=== PATIENT | male | born 1930 | race African-American/Black ===

== ENCOUNTER 2016-04-10 13:00 | Outpatient (CLI) ==
[2013-02-15 07:58] VITALS: BMI 33.0
== END 2016-04-10 13:01 | disposition home or self-care (01) ==
LOC: AMBL 13:00
PROVIDERS: ATTEND Emergency Medicine
DX: Z04.3 Encounter for examination and observation following other accident (principal); W07.XXXA Fall from chair, initial encounter; Y92.002 Bathroom of unspecified non-institutional (private) residence as the place of occurrence of the external cause

== ENCOUNTER 2016-11-15 16:07 | Outpatient (CLI) | payer OTHER ==
[2013-02-15 07:58] VITALS: BMI 33.0
[2016-11-15 16:13] LABS: BASOPHILS % (AUTO) 0.7 % (0.0-3.0); EOSINOPHILS # (AUTO) 0.2 K/ul (0.0-0.7); EOSINOPHILS % (AUTO) 5.3 % (0.0-7.0); HEMATOCRIT 32.7 % (42.0-52.0); HEMOGLOBIN 10.6 g/dl (14.0-18.0); IMMATURE GRANULOCYTE % (AUTO) 0.2 % (0.0-5.0); LYMPHOCYTES # (AUTO) 0.8 K/uL (0.60-3.4); LYMPHOCYTES % (AUTO) 18.1 (10.0-50.0); MEAN CORPUSCULAR HEMOGLOBIN 28.9 pg (27.0-31.0); MEAN CORPUSCULAR HGB CONC 32.4 (31.8-35.4); MEAN CORPUSCULAR VOLUME 89.1 fl (80.0-94.0); MONOCYTES # (AUTO) 0.7 K/uL (0.4-2.0); MONOCYTES % (AUTO) 14.9 (0-10); NEUTROPHILS # (AUTO) 2.7 K/ul (2.0-6.9); NEUTROPHILS % (AUTO) 60.8; PLATELET COUNT 170 10^3/uL (140-440); RED BLOOD COUNT 3.67 10^6/ul (4.70-6.10); WHITE BLOOD COUNT 4.37 K/ul (4.2-10.2)
[2016-11-15 16:49] LABS: ALBUMIN 3.5 g/dL (3.4-5.0); ALBUMIN/GLOBULIN RATIO 1.13; ANION GAP 14.2; BILIRUBIN,TOTAL 0.34 mg/dL (0.00-1.20); BUN/CREATININE RATIO 18.24; CALCIUM 9.6 mg/dL (8.2-10.2); CHOL/HDL RATIO 2.4 (4.5-6.4); CREATININE 1.37 mg/dL (0.60-1.10); POTASSIUM 5.2 mmol/L (3.5-5.1); TOTAL PROTEIN 6.6 g/dL (5.8-8.1)
== END 2016-11-15 16:08 | disposition home or self-care (01) ==
LOC: LAB 16:07
PROVIDERS: ATTEND Emergency Medicine
DX: D75.0 Familial erythrocytosis (principal); E78.5 Hyperlipidemia, unspecified
CPT/HCPCS: 36415; 80053; 80061; 84443; 85025

== ENCOUNTER 2016-12-08 16:45 | Outpatient (CLI) | payer OTHER ==
[2013-02-15 07:58] VITALS: BMI 33.0
[2016-12-08 17:26] LABS: ALBUMIN 3.6 g/dL (3.4-5.0); ALBUMIN/GLOBULIN RATIO 1.03; ANION GAP 11.1; BILIRUBIN,TOTAL 0.29 mg/dL (0.00-1.20); BUN/CREATININE RATIO 28.85; CALCIUM 9.8 mg/dL (8.2-10.2); CREATININE 1.49 mg/dL (0.60-1.10); POTASSIUM 4.1 mmol/L (3.5-5.1); TOTAL PROTEIN 7.1 g/dL (5.8-8.1)
== END 2016-12-08 16:46 | disposition home or self-care (01) ==
LOC: LAB 16:45
PROVIDERS: ATTEND Emergency Medicine
DX: E78.5 Hyperlipidemia, unspecified (principal); D75.0 Familial erythrocytosis
CPT/HCPCS: 36415; 80053

== ENCOUNTER → 2017-02-15 | Outpatient (CLI) | LOC: AMBL 08:38 | PROVIDERS: ATTEND Emergency Medicine | DX: Z04.3 Encounter for examination and observation following other accident (principal); G30.9 Alzheimer's disease, unspecified; F02.80 Dementia in other diseases classified elsewhere, unspecified severity, without behavioral disturbance, psychotic disturbance, mood disturbance, and anxiety; W18.11XA Fall from or off toilet without subsequent striking against object, initial encounter ==

== ENCOUNTER 2017-02-18 13:43 | Inpatient (IN) ==
[2017-02-18 15:31] VITALS: BMI 23.2
[2017-02-18] MEDS: NAMENDA PO SCH (20:57)
[2017-02-18] MEDS: LIPITOR PO SCH (20:58)
[2017-02-18] MEDS: SEROQUEL PO SCH (20:58)
[2017-02-18] MEDS: NEURONTIN PO SCH (20:58)
[2017-02-18] MEDS: FERROUS SULFATE PO SCH (20:59)
[2017-02-18] MEDS ORDERED: NON-FORMULARY MEDICATION (Ferrous Sulfate [Ferrous Sulfate] 325 MG) PO SCH (21:00)
[2017-02-19] MEDS: NAMENDA PO SCH (08:44)
[2017-02-19] MEDS: LEXAPRO PO SCH (08:44)
[2017-02-19] MEDS: COZAAR PO SCH (08:44)
[2017-02-19] MEDS: FERROUS SULFATE PO SCH ×3 (08:45→21:35)
[2017-02-19] MEDS: MULTIVITAMIN TABLET PO SCH (08:46)
[2017-02-19] MEDS: DITROPAN XL PO SCH (08:47)
[2017-02-19] MEDS ORDERED: FOLIC ACID PO SCH (09:00)
[2017-02-19] MEDS ORDERED: NON-FORMULARY MEDICATION (Escitalopram Oxalate [Escitalopram Oxalate] 20 MG) PO SCH (09:00)
[2017-02-19] MEDS ORDERED: MULTIVIT IRON MINER PO SCH (09:00)
[2017-02-19] MEDS ORDERED: [UNRECOGNIZED DRUG - OTHER] PO SCH (09:00)
[2017-02-19] MEDS ORDERED: DONEPEZIL HCL 23 MG PO SCH (09:00)
[2017-02-19] MEDS ORDERED: OXYBUTYNIN CHLORIDE 10 MG PO SCH (09:00)
[2017-02-19] MEDS ORDERED: ZEBETA PO SCH (09:00)
--- NOTE | 2017-02-19 11:04 | RS.PTINEVL ---
Subjective - Patient information Date of Evaluation: 02/19/17 Date of Arrival on Unit: 02/18/17 Admitted From:: Facility Transfer ([facility]) Usual Living Arrangement: With Spouse Living Arrangement Comments: Spouse cares for patient in the home. His is currently in the custodial. Home Environment: House, Stairs (few) (to enter home) Medical History: Hypertension, Dementia, Cancer (Prostate) Subjective Information/ Patient Comments:: Patient states he feels like he could go home today. Agrees that he would be safer if he stayed for a few days to get stronger. He reports he was able to ambulate independently at home prior to his hospitalization at [facility]. - Level of function Abilities prior to this admission: Patient states he was independent with all transfers and ambulation. Previously , when his was here for therapy, we understood that they had help in the home besides their daughters. No family is present for information today. Current Level of Function: Partially Dependent Current Equipment Used at Home: rolling walker Interventions - Objective Patient Orientation: Person, Place, Time, Situation Range of Motion - ROM Right Lower Extremity AROM: WFL's Left Lower Extremity AROM: WFL's Muscle Strength - Muscle Strength Comments:: Bilateral hip strength 4-/5, knees 4/5, ankle 4 /5. Sensation - Sensation Right Lower Extremity Sensation: Intact/Normal Left Lower Extremity Sensation: Intact/Normal Balance - Sitting Balance and Reactions Static Sitting Balance: Good Dynamic Sitting Balance: Good - Standing Balance and Reactions Static Standing Balance: Fair (+) Dynamic Standing Balance: Fair Functional Mobility - Bed Mobility Scooting: CGA, Min Assist, 1 person assist, Verbal Cues, Tactile Cues Supine to Sit: CGA, Min Assist, 1 person assist, Verbal Cues, Tactile Cues - Transfers Sit to Stand: Min Assist, 1 person assist, Verbal Cues, Tactile Cues Stand to Sit: Min Assist, 1 person assist, Verbal Cues, Tactile Cues Stand Pivot Transfers: Min Assist, 1 person assist, Verbal Cues, Tactile Cues - Safety Awareness Safety Awareness: Poor Ambulation - Ambulation Weight Bearing Status: FWB Assistive Device Used: Rolling Walker Distance: 40 feet Assistance needed with Ambulation: Min Assist, 1 person assist, Verbal Cues, Tactile Cues Gait Deviations: Narrow Based gait, Forward posture, Displaced COG (posteriorly displaced), Short stride, Lacks step continuity Ambulation Comments: Tinetti Assessment score today is 9/28=67% impairment and a high risk for falls. Factors Affecting Ambulation: Decreased Balance, Weakness, Decreased Safety Treatment time - Time with patient Total treatment time: 42 (mins) Assessment - Assessment Problem List:: Decreased level of function, Requires training/education, Decreased safety/Risk of falls, Weakness Rehab Potential: Good Further Therapy Indicated?: Yes Comments: Presents to be at a high risk for falls per Tinetti Assessment Short Term Goals GOAL #1: Supine to sit with CGA and VC's of one. Goal to be met by: 02/22/17 GOAL #2: Sit to stand with good use of UE's and CGA of one. Goal to be met by: 02/22/17 GOAL #3: Pt to amb. with RW 60 feet with CGA and good base of support. Goal to be met by: 02/23/17 Jail Goals GOAL #1: All bed mobility independent. Goal to be met by: 02/26/17 GOAL #2: Transfers with SBA and good safety. Goal to be met by: 02/26/17 GOAL #3: Amb. with RW household distances with SBA w/ good safety. Goal to be met by: 02/26/17 Plan Plan of Care: Therapeutic EX, Neuromuscular Re-Educ, Therapeutic Activity, Self- Care/Home Management Frequency of Treatment: 1-2 X day, as tolerated Duration of Treatment: 1 Week Anticipated Discharge Destination: Home Has the Physician been added for Co-signature?: Yes
[2017-02-19] MEDS ORDERED: NAPROSYN PO PRN (13:55)
[2017-02-19] MEDS ORDERED: MILK OF MAGNESIA PO PRN (13:57)
[2017-02-19] MEDS: APRESOLINE PO SCH ×2 (14:41→21:35)
[2017-02-19] MEDS: LIPITOR PO SCH (21:35)
[2017-02-19] MEDS: NEURONTIN PO SCH (21:35)
[2017-02-19] MEDS: OMNICEF PO SCH (21:35)
[2017-02-19] MEDS: LOPRESSOR PO SCH (21:36)
[2017-02-19] MEDS: SEROQUEL PO SCH (21:36)
[2017-02-19] MEDS ORDERED: ARICEPT PO STA (21:40)
[2017-02-19] MEDS: DONEPEZIL HCL 23 MG PO SCH (21:41)
[2017-02-20] MEDS: APRESOLINE PO SCH ×3 (04:56→20:15)
[2017-02-20] MEDS: DITROPAN XL PO SCH (08:36)
[2017-02-20] MEDS: LEXAPRO PO SCH (08:36)
[2017-02-20] MEDS: LOPRESSOR PO SCH ×2 (08:36→20:14)
[2017-02-20] MEDS: OMNICEF PO SCH ×2 (08:36→20:15)
[2017-02-20] MEDS: FERROUS SULFATE PO SCH ×3 (08:36→20:14)
[2017-02-20] MEDS: MULTIVITAMIN TABLET PO SCH (08:36)
[2017-02-20] MEDS: NAMENDA PO SCH ×2 (08:36→12:15)
[2017-02-20] MEDS: COZAAR PO SCH (08:36)
[2017-02-20] MEDS: SEROQUEL PO SCH (20:14)
[2017-02-20] MEDS: ARICEPT PO SCH (20:14)
[2017-02-20] MEDS: NEURONTIN PO SCH (20:15)
[2017-02-20] MEDS: LIPITOR PO SCH (20:15)
[2017-02-20] MEDS: DONEPEZIL HCL 23 MG PO SCH (20:16)
[2017-02-21] MEDS: APRESOLINE PO SCH ×3 (04:38→21:28)
[2017-02-21] MEDS: LEXAPRO PO SCH (08:46)
[2017-02-21] MEDS: LOPRESSOR PO SCH ×2 (08:46→21:28)
[2017-02-21] MEDS: OMNICEF PO SCH ×2 (08:46→21:28)
[2017-02-21] MEDS: MULTIVITAMIN TABLET PO SCH (08:46)
[2017-02-21] MEDS: NAMENDA PO SCH ×2 (08:46→12:30)
[2017-02-21] MEDS: FERROUS SULFATE PO SCH ×3 (08:46→21:28)
[2017-02-21] MEDS: DITROPAN XL PO SCH (08:46)
[2017-02-21] MEDS: COZAAR PO SCH (08:47)
[2017-02-21] MEDS: DEPAKOTE SPRINKLES PO SCH ×2 (11:12→21:28)
[2017-02-21] MEDS: LOVENOX SUBCUT SCH (11:12)
[2017-02-21] MEDS ORDERED: DIVALPROEX SODIUM 125 MG PO SCH (21:00)
[2017-02-21] MEDS: NEURONTIN PO SCH (21:28)
[2017-02-21] MEDS: LIPITOR PO SCH (21:29)
[2017-02-21] MEDS: SEROQUEL PO SCH (21:29)
[2017-02-21] MEDS: ARICEPT PO SCH (21:29)
[2017-02-22] MEDS: APRESOLINE PO SCH ×5 (05:04→20:47)
[2017-02-22] MEDS ORDERED: APRESOLINE PO SCH (09:00)
[2017-02-22] MEDS: OMNICEF PO SCH ×2 (09:30→20:53)
[2017-02-22] MEDS: NAMENDA PO SCH ×2 (09:30→12:52)
[2017-02-22] MEDS: LOVENOX SUBCUT SCH (09:30)
[2017-02-22] MEDS: COZAAR PO SCH (09:30)
[2017-02-22] MEDS: DITROPAN XL PO SCH (09:30)
[2017-02-22] MEDS: MULTIVITAMIN TABLET PO SCH (09:30)
[2017-02-22] MEDS: DEPAKOTE SPRINKLES PO SCH ×2 (09:30→20:49)
[2017-02-22] MEDS: FERROUS SULFATE PO SCH ×3 (09:31→20:50)
[2017-02-22] MEDS: LOPRESSOR PO SCH ×2 (09:31→20:52)
--- NOTE | 2017-02-22 12:51 | PN ---
DATE OF SERVICE: 02/20/17 SUBJECTIVE: The patient was admitted from the from the [facility] after being treated there for the gait problem with behavioral changes and UTI. The patient is now more awake and alert. Recognizes me instantly. Needing antibiotic Omnicef for the UTI. No leg edema. REVIEW OF SYSTEMS: CONSTITUTIONAL: No fever, no chills. HEENT: Normal. ENDOCRINE: No weight gain, no weight loss. CVS: No angina symptoms. No CHF symptoms. No palpitations. No atypical chest pain for CAD. No shortness of breath. No PND, no orthopnea. RESPIRATORY: No cough, no hemoptysis. GI: No nausea, no vomiting. No abdominal pain. : No hematuria. No polyuria. MUSCULOSKELETAL:. No joint swelling. PSYCHIATRIC: Not anxious. No depression. No suicidal thoughts. No homicidal thoughts. SKIN: Intact. No rash. PHYSICAL EXAMINATION: V/S: Blood pressure 160/65, respiratory rate 16, heart rate 55, temperature 97.2 and WBC 5.07, hgb 10.6, hct 32.8, plt count 180, sodium 141, potassium 4.1 , chloride 104, bicarb 30, BUN 38, creatinine 1.23. HEENT: Normocephalic, atraumatic. NECK: Supple. No JVD, no carotid bruit. No lymphadenopathy. LUNGS: Clear to auscultation. No rales or rhonchi. HEART: S1, S2 normal. No S3. No murmur, gallop or regurgitation. ABDOMEN: Soft, nontender. Bowel sounds active. No rigidity. No rebound or guarding. No CVA tenderness. EXTREMITIES: No clubbing, cyanosis or pedal edema. MUSCULOSKELETAL: No joint swelling. NEUROLOGIC: Awake, alert. No focal deficit. LYMPHATIC: No lymph nodes palpable. SKIN: Intact. ASSESSMENT: 1. UTI being treated with Omnicef 2. Weakness 3. Debility needing physical therapy 4. Recent change in mental status and behavioral changes with Alzheimer's Dementia with behavioral changes was in the [place]. 5. Hypertension 6. Chronic kidney disease 7. Anemia 8. Dyslipidemia PLAN: 1. Continue Omnicef, Aricept, Namenda 2. I&O's 3. Fall Precautions Will follow the patient in daily rounds. TIME SPENT: More than 35 minutes MTDD
[2017-02-22] MEDS: CALMOSEPTINE OINTMENT TP SCH ×2 (12:52→20:49)
[2017-02-22] MEDS: FLAGYL PO SCH ×2 (12:52→20:50)
[2017-02-22] MEDS: ARICEPT PO SCH (20:49)
[2017-02-22] MEDS: LEXAPRO PO SCH (20:51)
[2017-02-22] MEDS: NEURONTIN PO SCH (20:52)
[2017-02-22] MEDS: LIPITOR PO SCH (20:52)
[2017-02-22] MEDS: SEROQUEL PO SCH (20:53)
[2017-02-23] MEDS: FLAGYL PO SCH ×3 (05:41→20:57)
[2017-02-23] MEDS: FERROUS SULFATE PO SCH ×3 (08:41→20:58)
[2017-02-23] MEDS: LOPRESSOR PO SCH ×2 (08:41→21:01)
[2017-02-23] MEDS: DEPAKOTE SPRINKLES PO SCH ×2 (08:41→20:58)
[2017-02-23] MEDS: DITROPAN XL PO SCH (08:41)
[2017-02-23] MEDS: COZAAR PO SCH (08:41)
[2017-02-23] MEDS: NAMENDA PO SCH ×2 (08:42→14:21)
[2017-02-23] MEDS: MULTIVITAMIN TABLET PO SCH (08:42)
[2017-02-23] MEDS: LOVENOX SUBCUT SCH (08:42)
[2017-02-23] MEDS: APRESOLINE PO SCH ×4 (08:42→20:57)
[2017-02-23] MEDS: CALMOSEPTINE OINTMENT TP SCH ×2 (08:42→20:58)
[2017-02-23] MEDS: OMNICEF PO SCH ×2 (08:42→20:58)
--- NOTE | 2017-02-23 10:06 | HP ---
DATE OF SERVICE: 02/18/17 CHIEF COMPLAINT: Physical therapy and occupation therapy. HISTORY OF PRESENT ILLNESS: This is an 86 year old male who was recently seen in the [facility] for syncopal episode and found to have the urinary tract infection. He was admitted there for initial treatment of IV antibiotics. He was there for the syncopal episodes. MRI of the brain did not show any abnormalities, showed the atrophy. UTI was positive so that was treated with antibiotics. After the initial treatment the patient was still needing help for the physical therapy and occupational therapy so the patient being transferred to the [facility] for the transitional care unit. REVIEW OF SYSTEMS: CONSTITUTIONAL: No fever, no chills.Weakness and tiredness. Inability to walking. HEENT: Normal. ENDOCRINE: No weight gain; no weight loss. CVS: No chest pain. No PND, no orthopnea. No shortness of breath. No PND, no orthopnea. RESPIRATORY: No cough, no congestion. No hemoptysis. GI: No nausea, no vomiting. No abdominal pain. No melena. : No hematuria. No polyuria. More frequency of urination. MUSCULOSKELETAL: No joint swelling. Joint pains. Leg edema. PSYCHIATRIC: Not anxious. No depression. No suicidal thoughts. No homicidal thoughts. SKIN: Intact, no open lesions. PAST MEDICAL HISTORY: Alzheimer's Dementia with behavioral changes. Hypertension Hyperlipidemia Anemia History of prostate cancer PAST SURGICAL HISTORY: Prostate PERSONAL HISTORY: The patient is and lives by himself at this time. He lives at the correction. Family history is significant for high blood pressure. MEDICATIONS: Seroquel Centrum Zebeta Namenda Lexapro Ditropan Cozaar Ferrous Sulfate Neurontin Lipitor Aricept ALLERGIES: No known allergies PHYSICAL EXAMINATION: V/S: Blood pressure 142/64, respiratory rate 19, heart rate 68, temperature 98.1 with saturation 97. HEENT: Atraumatic, normocephalic. No scleral icterus. Pallor positive. Mucosa dry. NECK: Supple. No JVD, no bruit. No lymphadenopathy. No thyromegaly. HEART: S1, S2 normal. No murmur. No cyanosis or clubbing. No ascites. LUNGS: Bilateral entry is decreased and clear to auscultation. No rales or rhonchi. ABDOMEN: Soft, nontender. Bowel sounds are active. No CVA tenderness. No rigidity or guarding. EXTREMITIES: No cyanosis, clubbing, 1+ edema. MUSCULOSKELETAL: Normal joints, no swelling. NEUROLOGIC: The patient is awake and alert. SKIN: Intact; no open lesions. LYMPHATIC: No lymph nodes palpable. LABS: Sodium 141, potassium 4.1, chloride 104, bicarb 30, BUN 38, creatinine 1.23, WBC 5.07, hgb 10.6, hct 32.8, plt count 180. ASSESSMENT: 1. UTI 2. Debility and weakness 3. Alzheimer dementia with behavioral changes 4. Hypertension 5. Osteoarthritis 6. Dependant edema PLAN: 1. Admit patient to the TCU care 2. CBC and CMP every other day 3. PT/OT please evaluated and treat 4. Diet cardiac and healthy 5. Continue Omnicef 6. Lipitor 5. Depakote 6. Aricept 7. Lovenox for the DVT prophylaxis 8. Lexapro 9. Ferrous sulfate 10.Neurontin 11.Hydralazine 10mg PO Q 8 hours 12.Losartan 13.Magnesium 14.Namenda 15.Metoprolol 16.Naproxen TIME SPENT: MORE THAN 75 minutes MTDD
--- NOTE | 2017-02-23 10:11 | PN ---
DATE OF SERVICE: 02/21/17 SUBJECTIVE: The patient was admitted with the weakness and tiredness and needing the physical therapy. Physical therapy people are going to come and see the patient today. Needing some help for the ambulation. REVIEW OF SYSTEMS: CONSTITUTIONAL: No fever, no chills. HEENT: Normal. ENDOCRINE: No weight gain, no weight loss. CVS: No angina symptoms. No CHF symptoms. No palpitations. No atypical chest pain for CAD. No shortness of breath. No PND, no orthopnea. RESPIRATORY: No cough, no hemoptysis. GI: No nausea, no vomiting. No abdominal pain. : No hematuria. No polyuria. MUSCULOSKELETAL:. No joint swelling. PSYCHIATRIC: Not anxious. No depression. No suicidal thoughts. No homicidal thoughts. SKIN: Intact. No rash. PHYSICAL EXAMINATION: V/S: Blood pressure 160/78, respiratory rate 16, heart rate 59, temperature 97.5 with saturation 97. HEENT: Normocephalic, atraumatic. Mucosa dry. Pallor positive. No icterus. NECK: Supple. No JVD, no carotid bruit. No lymphadenopathy. LUNGS: Bilateral entry is decreased and clear to auscultation. No rales or rhonchi. HEART: S1, S2 normal. No S3. No murmur, gallop or regurgitation. ABDOMEN: Soft, nontender. Bowel sounds active. No rigidity. No rebound or guarding. No CVA tenderness. EXTREMITIES: No clubbing, cyanosis or pedal edema. MUSCULOSKELETAL: No joint swelling. NEUROLOGIC: Awake, alert, oriented times three. No focal deficit. LYMPHATIC: No lymph nodes palpable. SKIN: Intact. LABS: WBC 5.07, hgb 10.6, hct 32.8, plt count 180, sodium 141, potassium 4.1, chloride 104, bicarb 30, BUN 38, creatinine 1.23, glucose 89. ASSESSMENT: 1. UTI 2. Weakness and tiredness needing some physical therapy 3. Hypertension 4. Alzheimer's Dementia with behavioral changes 5. Dyslipidemia 6. Osteoarthritis 7. DJD spine PLAN: 1. Continue physical therapy and occupational therapy 2. Continue Omnicef 3. Keep the legs elevated when resting. TIME SPENT: More than 35 minutes MTDD
--- NOTE | 2017-02-23 10:15 | CT ---
EXAM: CT Abdomen without contrast. CT Pelvis without contrast. HISTORY: Abdominal discomfort. Diarrhea. COMPARISON: None available. TECHNIQUE: Multiple axial images of the abdomen and pelvis were obtained without intravenous contras t. Images were reformatted in the coronal plane. FINDINGS: Please note that evaluation of the abdominal and pelvic structures is limited due to lack of intravenous contrast. The lung bases are clear. Bilateral pars defects seen at L5 with grade 1 anterolisthesis of L5-1, S1 by approximately 0.7 cm. There is sclerosis within the T11 vertebral body best seen on sagittal byron ge 66 and coronal image 57. The liver, gallbladder, pancreas, spleen, and adrenal glands demonstrate normal contour. Low density right renal lesions measure up to 3.1 x 2 cm on axial image 24 and 2.8 x 1.8 cm on axial image 27. There is no right hydronephrosis. Left nephrolithiasis noted measuring up to 0.4 cm. There is moder ate left hydronephrosis, although no obstructing ureteral calculi are seen. There are numerous food bolus present in the pelvis which somewhat limit evaluation. The urinary bladder is distended withou t localized abnormality. There is moderate distension of the stomach with debris. There is mild fluid distension of multiple small bowel loops without transition point. Colon is normal in caliber. The appendix is normal. At herosclerotic calcifications present. No free fluid or free air identified. Probable subcutaneous i njection site in the left anterior abdomen on axial image 45. IMPRESSION: 1. Nonspecific gastric and small bowel distension could represent enteritis. 2. Moderate left hydronephrosis possibly due to distended urinary bladder. There is left nephrolith iasis although no obstructing left ureteral calculi are identified. 3. Indeterminate low-density right renal lesions, likely cysts. Follow-up ultrasound recommended. 4. Sclerosis within the T11 vertebral body. Correlation for any primary neoplasm recommended as a m etastatic focus should be excluded.
--- NOTE | 2017-02-23 11:28 | PN ---
DATE OF SERVICE: 02/22/17 SUBJECTIVE: The patient was admitted with the weakness, tiredness and UTI getting the physical therapy. REVIEW OF SYSTEMS: CONSTITUTIONAL: No fever, no chills. HEENT: Normal. ENDOCRINE: No weight gain, no weight loss. CVS: No angina symptoms. No CHF symptoms. No palpitations. No atypical chest pain for CAD. No shortness of breath. No PND, no orthopnea. RESPIRATORY: No cough, no hemoptysis. GI: No nausea, no vomiting. No abdominal pain. : No hematuria. No polyuria. MUSCULOSKELETAL:. No joint swelling. PSYCHIATRIC: Not anxious. No depression. No suicidal thoughts. No homicidal thoughts. SKIN: Intact. No rash. PHYSICAL EXAMINATION: V/S: blood pressure 147/68, respiratory rate 18, heart rate 59, temperature 98.4. HEENT: Normocephalic, atraumatic. Mucosa dry. NECK: Supple. No JVD, no carotid bruit. No lymphadenopathy LUNGS: Bilateral entry is decreased. Clear to auscultation. No rales or rhonchi. HEART: S1, S2 normal. No S3. No murmur, gallop or regurgitation. ABDOMEN: Soft, nontender. Bowel sounds active. No rigidity. No rebound or guarding. No CVA tenderness. EXTREMITIES: No clubbing, cyanosis or pedal edema. MUSCULOSKELETAL: No joint swelling. NEUROLOGIC: Awake, alert, oriented times three. No focal deficit. LYMPHATIC: No lymph nodes palpable. SKIN: Intact. LABS: WBC 5.96, hgb 10.7, hct 34.8, plt count 198, sodium 143, potassium 4.7, chloride 107, bicarb 12, BUN 32, creatinine 1.36 ASSESSMENT: 1. UTI 2. Debility and weakness 3. Alzheimer's Dementia with behavioral changes 4. Chronic kidney disease 5. Hypertension 6. Osteoarthritis PLAN: 1. Continue the Omnicef 2. Increase the Hydralazine to 25mg Q 8 hours 3. PT/OT continue physical therapy and exercise 4. Fall precaution 5. Decubitus ulcer precautions TIME SPENT: More than 35 minutes MTDD
--- NOTE | 2017-02-23 14:23 | PN ---
DATE OF SERVICE: 02/19/17 SUBJECTIVE: The patient came yesterday from [facility] after the initial treatment for change in mental status, behavioral problems with Alzheimer's dementia and had been treated for UTI also with Omnicef. Here, he has been doing fine in the chair, able to walk some by himself. He is able to get out of chair and sit on the bed with some help otherwise no acute complaints. REVIEW OF SYSTEMS: CONSTITUTIONAL: No fever, no chills. HEENT: Normal. ENDOCRINE: No weight gain, no weight loss. CVS: No angina symptoms. No CHF symptoms. No palpitations. No atypical chest pain for CAD. No shortness of breath. No PND, no orthopnea. RESPIRATORY: No cough, no hemoptysis. GI: No nausea, no vomiting. No abdominal pain. : No hematuria. No polyuria. MUSCULOSKELETAL: No joint swelling. PSYCHIATRIC: Not anxious. No depression. No suicidal thoughts. No homicidal thoughts. SKIN: Intact. No rash. PHYSICAL EXAMINATION: V/S: BP 161/74, respiratory rate 20, heart rate 59, temperature 98.4. Saturation is 98. HEENT: Normocephalic, atraumatic. Mucosa dry. Pallor positive. No icterus. NECK: Supple. No JVD, no carotid bruit. No lymphadenopathy. LUNGS: Decreased entry. Clear to auscultation. No rales or rhonchi. HEART: S1, S2 normal. No S3. No murmur, gallop or regurgitation. ABDOMEN: Soft, nontender. Bowel sounds active. No rigidity. No rebound or guarding. No CVA tenderness. EXTREMITIES: 1+ edema. No clubbing or cyanosis. MUSCULOSKELETAL: No joint swelling. NEUROLOGIC: Normal. LYMPHATIC: No lymph nodes palpable. SKIN: Intact. LABS: White count 5.07, hemoglobin 10.6, hematocrit 32.8, platelet count 180. Sodium 141, potassium 4.1, chloride 104, bicarb 30, BUN 38, creatinine 1.23. ASSESSMENT: 1. STATUS POST AGITATION AND CONFUSION 2. ALZHEIMER'S DEMENTIA WITH BEHAVIORAL CHANGES 3. HYPERTENSION 4. DYSLIPIDEMIA 5. OSTEOARTHRITIS 6. DJD SPINE 7. CHRONIC KIDNEY DISEASE 8. ANEMIA 9. UTI PLAN: 1. Continue antibiotic Omnicef 2. Namenda as per the family's request, change timing of the dosage 3. Will follow with the patient in daily rounds TIME SPENT: More than 35 minutes MTDD
--- NOTE | 2017-02-23 15:54 | PN ---
DATE OF SERVICE: 02/23/17 SUBJECTIVE: The patient was admitted from the [facility] for the physical therapy and occupational therapy. The patient has been up and about walking. The patient's daughter is there, had a lot of questions and all have been answered. REVIEW OF SYSTEMS: CONSTITUTIONAL: No fever, no chills. HEENT: Normal. ENDOCRINE: No weight gain, no weight loss. CVS: No angina symptoms. No CHF symptoms. No palpitations. No atypical chest pain for CAD. No shortness of breath. No PND, no orthopnea. RESPIRATORY: No cough, no hemoptysis. GI: No nausea, no vomiting. No abdominal pain. : No hematuria. No polyuria. MUSCULOSKELETAL:. No joint swelling. PSYCHIATRIC: Not anxious. No depression. No suicidal thoughts. No homicidal thoughts. SKIN: Intact. No rash. PHYSICAL EXAMINATION: V/S: Blood pressure 154/78, respiratory rate 18, heart rate 62, temperature 97.6 with saturation 97 on the room air. HEENT: Normocephalic, atraumatic. Mucosa dry. Pallor positive. No icterus. NECK: Supple. No JVD, no carotid bruit. No lymphadenopathy. LUNGS: Bilateral entry is decreased and clear to auscultation. No rales or rhonchi. HEART: S1, S2 normal. No S3. No murmur, gallop or regurgitation. ABDOMEN: Soft, nontender. Bowel sounds active. No rigidity. No rebound or guarding. No CVA tenderness. EXTREMITIES: No clubbing, cyanosis. 1+ edema. MUSCULOSKELETAL: No joint swelling. NEUROLOGIC: Awake, alert, oriented times three. No focal deficit. LYMPHATIC: No lymph nodes palpable. SKIN: Intact. LABS: WBC 5.96, hgb 10.7, hct 34.8, plt count 198, sodium 142, potassium 4.7, chloride 107, bicarb 32, BUN 32, creatinine 1.36 ASSESSMENT: 1. UTI 2. Weakness and needing physical therapy 3. Alzheimer's Dementia 4. Hypertension 5. Anemia 6. Dependant edema PLAN: 1. Continue the Omnicef 2. PT/OT continue treating 3. Lovenox for the DVT prophylaxis 4. Ampicillin 25mg Q 8 hour 5. Blood pressure been maintained TIME SPENT: More than 35 minutes. Care and plan been discussed with the patient' s daughter who was present at the bedside. [facility]
[2017-02-23] MEDS: ARICEPT PO SCH (20:57)
[2017-02-23] MEDS: SEROQUEL PO SCH (20:57)
[2017-02-23] MEDS: NEURONTIN PO SCH (20:58)
[2017-02-23] MEDS: LIPITOR PO SCH (20:58)
[2017-02-23] MEDS: LEXAPRO PO SCH (21:00)
[2017-02-24] MEDS: FLAGYL PO SCH ×3 (05:56→20:35)
[2017-02-24] MEDS: LOVENOX SUBCUT SCH (08:46)
[2017-02-24] MEDS: NAMENDA PO SCH ×2 (08:47→13:10)
[2017-02-24] MEDS: APRESOLINE PO SCH ×4 (08:47→20:35)
[2017-02-24] MEDS: LOPRESSOR PO SCH ×2 (08:47→20:36)
[2017-02-24] MEDS: COZAAR PO SCH (08:47)
[2017-02-24] MEDS: DEPAKOTE SPRINKLES PO SCH ×2 (08:47→20:36)
[2017-02-24] MEDS: OMNICEF PO SCH ×2 (08:47→20:36)
[2017-02-24] MEDS: MULTIVITAMIN TABLET PO SCH (08:47)
[2017-02-24] MEDS: CALMOSEPTINE OINTMENT TP SCH ×2 (08:47→20:37)
[2017-02-24] MEDS: FERROUS SULFATE PO SCH ×3 (08:47→20:36)
[2017-02-24] MEDS: DITROPAN XL PO SCH (08:47)
--- NOTE | 2017-02-24 11:36 | CT ---
EXAM: CT chest without contrast. HISTORY: Sclerosis within the T11 vertebral body. Evaluate for neoplasm. Cough. COMPARISON: Abdominal CT 1 day prior. TECHNIQUE: Multiple axial images of the chest were obtained without intravenous contrast. Images we re reformatted in the sagittal and coronal planes. FINDINGS: Evaluation for lymphadenopathy is limited by lack of intravenous contrast. Heart size is at the upper limits normal. No pericardial effusion identified. Atherosclerotic calcifications pres ent. Bilateral gynecomastia noted. A 0.4 cm right upper lobe nodule on axial image 18 is present. Subtle subpleural nodularity in the a nterior right upper lobe is most notable on axial images 28 and 29. No consolidation, pleural effusio n or pneumothorax identified. There is mild gaseous distension of the esophagus. Moderate left hydronephrosis again noted. Sclerosis of the T11 vertebral body again noted. No other sclerotic lesions are seen within the thor ax. Old right posterior eighth rib fracture noted. IMPRESSION: 1. Redemonstration of sclerosis in the T11 vertebral body. No other sclerotic lesions are seen with in the thorax. MRI may be helpful for further characterization. 2. Right upper lobe micronodules require follow-up based on the etiology #1 above. 3. Nonspecific gaseous distension of the esophagus could be due to reflux.
--- NOTE | 2017-02-24 11:45 | CT ---
EXAM: CT thoracic spine without contrast. HISTORY: T11 abnormality, possible neoplasm COMPARISON: None TECHNIQUE: CT thoracic spine performed without intravenous contrast. Coronal and sagittal reformatt ed images obtained. FINDINGS: Vertebral bodies normal height. No fracture. No subluxation. Moderate multilevel chroni c discogenic degenerative disease with intervertebral space narrowing and marginal osteophyte formati on. Sclerosis of the T11 vertebral body. Central canal grossly patent. Please see separate report CT chest regarding findings in the chest. IMPRESSION: 1. Redemonstration of sclerosis of the T11 vertebral body. Correlation for primary neoplasm recommen d the as the metastatic etiology is a consideration and should be excluded. MRI with contrast may be beneficial for characterization. No additional sclerotic lesions seen in the thoracic spine. 2. Chronic discogenic degenerative disease.
[2017-02-24] MEDS: LIPITOR PO SCH (20:35)
[2017-02-24] MEDS: ARICEPT PO SCH (20:35)
[2017-02-24] MEDS: LEXAPRO PO SCH (20:36)
[2017-02-24] MEDS: SEROQUEL PO SCH (20:36)
[2017-02-24] MEDS: NEURONTIN PO SCH (20:36)
[2017-02-25] MEDS: FLAGYL PO SCH ×3 (04:28→20:00)
[2017-02-25] MEDS: DITROPAN XL PO SCH (08:28)
[2017-02-25] MEDS: NAMENDA PO SCH ×2 (08:28→13:47)
[2017-02-25] MEDS: OMNICEF PO SCH ×2 (08:28→20:00)
[2017-02-25] MEDS: DEPAKOTE SPRINKLES PO SCH ×2 (08:28→20:00)
[2017-02-25] MEDS: MULTIVITAMIN TABLET PO SCH (08:28)
[2017-02-25] MEDS: APRESOLINE PO SCH ×4 (08:29→20:01)
[2017-02-25] MEDS: LOPRESSOR PO SCH ×2 (08:29→20:00)
[2017-02-25] MEDS: LOVENOX SUBCUT SCH (08:30)
[2017-02-25] MEDS: FERROUS SULFATE PO SCH ×3 (08:30→20:01)
[2017-02-25] MEDS: COZAAR PO SCH (08:30)
[2017-02-25] MEDS: CALMOSEPTINE OINTMENT TP SCH (08:33)
[2017-02-25] MEDS: NEURONTIN PO SCH (19:59)
[2017-02-25] MEDS: SEROQUEL PO SCH (20:00)
[2017-02-25] MEDS: LIPITOR PO SCH (20:00)
[2017-02-25] MEDS: LEXAPRO PO SCH (20:00)
[2017-02-25] MEDS: ARICEPT PO SCH (20:01)
[2017-02-26] MEDS: CALMOSEPTINE OINTMENT TP SCH ×3 (02:27→20:09)
[2017-02-26] MEDS: FLAGYL PO SCH ×3 (06:20→20:06)
[2017-02-26] MEDS: OMNICEF PO SCH ×2 (08:40→20:07)
[2017-02-26] MEDS: COZAAR PO SCH (08:41)
[2017-02-26] MEDS: FERROUS SULFATE PO SCH ×3 (08:41→20:06)
[2017-02-26] MEDS: MULTIVITAMIN TABLET PO SCH (08:41)
[2017-02-26] MEDS: APRESOLINE PO SCH ×4 (08:41→20:06)
[2017-02-26] MEDS: DITROPAN XL PO SCH (08:41)
[2017-02-26] MEDS: LOPRESSOR PO SCH ×2 (08:42→20:07)
[2017-02-26] MEDS: DEPAKOTE SPRINKLES PO SCH ×2 (08:42→20:06)
[2017-02-26] MEDS: NAMENDA PO SCH ×2 (08:42→12:40)
[2017-02-26] MEDS: LOVENOX SUBCUT SCH (08:43)
[2017-02-26] MEDS: ARICEPT PO SCH (20:06)
[2017-02-26] MEDS: LIPITOR PO SCH (20:07)
[2017-02-26] MEDS: NEURONTIN PO SCH (20:07)
[2017-02-26] MEDS: SEROQUEL PO SCH (20:07)
[2017-02-26] MEDS: LEXAPRO PO SCH (20:07)
[2017-02-27] MEDS: FLAGYL PO SCH ×3 (04:55→20:27)
[2017-02-27] MEDS: CALMOSEPTINE OINTMENT TP SCH ×2 (08:48→20:26)
[2017-02-27] MEDS: LOVENOX SUBCUT SCH (08:49)
[2017-02-27] MEDS: DITROPAN XL PO SCH (08:49)
[2017-02-27] MEDS: APRESOLINE PO SCH ×4 (08:49→20:28)
[2017-02-27] MEDS: OMNICEF PO SCH ×2 (08:50→20:27)
[2017-02-27] MEDS: FERROUS SULFATE PO SCH ×3 (08:50→20:28)
[2017-02-27] MEDS: MULTIVITAMIN TABLET PO SCH (08:50)
[2017-02-27] MEDS: LOPRESSOR PO SCH ×2 (08:50→20:27)
[2017-02-27] MEDS: COZAAR PO SCH (08:50)
[2017-02-27] MEDS: DEPAKOTE SPRINKLES PO SCH ×2 (08:50→20:28)
[2017-02-27] MEDS: NAMENDA PO SCH ×2 (08:50→12:42)
[2017-02-27] MEDS: NEURONTIN PO SCH (20:27)
[2017-02-27] MEDS: ARICEPT PO SCH (20:27)
[2017-02-27] MEDS: SEROQUEL PO SCH (20:27)
[2017-02-27] MEDS: LEXAPRO PO SCH (20:28)
[2017-02-27] MEDS: LIPITOR PO SCH (20:28)
[2017-02-28] MEDS: FLAGYL PO SCH ×3 (05:11→20:00)
[2017-02-28] MEDS: LOVENOX SUBCUT SCH (08:48)
[2017-02-28] MEDS: OMNICEF PO SCH ×2 (08:49→20:00)
[2017-02-28] MEDS: DEPAKOTE SPRINKLES PO SCH ×2 (08:49→20:30)
[2017-02-28] MEDS: APRESOLINE PO SCH ×4 (08:49→19:59)
[2017-02-28] MEDS: DITROPAN XL PO SCH (08:49)
[2017-02-28] MEDS: COZAAR PO SCH (08:49)
[2017-02-28] MEDS: NAMENDA PO SCH ×2 (08:50→12:46)
[2017-02-28] MEDS: MULTIVITAMIN TABLET PO SCH (08:50)
[2017-02-28] MEDS: FERROUS SULFATE PO SCH ×3 (08:50→20:00)
[2017-02-28] MEDS: LOPRESSOR PO SCH ×2 (08:50→20:00)
[2017-02-28] MEDS: CALMOSEPTINE OINTMENT TP SCH ×2 (08:51→20:01)
--- NOTE | 2017-02-28 15:23 | PN ---
DATE OF SERVICE: 02/24/17 SUBJECTIVE: The patient was admitted with UTI, weakness and tiredness. The patient can walk good, needs only minimal help otherwise no problem walking. Antibiotic Omnicef has been given for UTI otherwise no fever, no chills. No PND or orthopnea. REVIEW OF SYSTEMS: CONSTITUTIONAL: Weakness, tiredness. No fever, no chills. HEENT: Normal. ENDOCRINE: No weight gain, no weight loss. CVS: No angina symptoms. No CHF symptoms. No palpitations. No atypical chest pain for CAD. No shortness of breath. No PND, no orthopnea. RESPIRATORY: No cough, no hemoptysis. GI: No nausea, no vomiting. No abdominal pain. : No hematuria. No polyuria. MUSCULOSKELETAL:. No joint swelling. PSYCHIATRIC: Not anxious. No depression. No suicidal thoughts. No homicidal thoughts. SKIN: Intact. No rash. PHYSICAL EXAMINATION: V/S: BP 146/76, respiratory rate 16, heart rate 76, temperature 97.3, saturation 98. HEENT: Normocephalic, atraumatic. Mucosa dry. Pallor positive. NECK: Supple. No JVD, no carotid bruit. No lymphadenopathy. LUNGS: Decreased air entry, clear to auscultation. No rales or rhonchi. HEART: S1, S2 normal. No S3. No murmur, gallop or regurgitation. ABDOMEN: Soft, nontender. Bowel sounds active. No rigidity. No rebound or guarding. No CVA tenderness. EXTREMITIES: No clubbing, cyanosis or pedal edema. MUSCULOSKELETAL: No joint swelling. NEUROLOGIC: Awake, alert, oriented times three. No focal deficit. LYMPHATIC: No lymph nodes palpable. SKIN: Intact. LABS: White count 5.96, hemoglobin 10.7, hematocrit 34.8, platelet count 198. Sodium 143, potassium 4.7, chloride 107, bicarb 32, BUN 32, creatinine 1.36. ASSESSMENT: 1. UTI 2. WEAKNESS AND DEBILITY 3. ACUTE ON CHRONIC RENAL FAILURE 4. OSTEOARTHRITIS 5. HISTORY OF PROSTATE CANCER PLAN: 1. CT of thoracic spine 2. CT chest 3. Physical and occupational care continue care 4. Will follow with the patient in daily rounds TIME SPENT: More than 35 minutes MTDD
--- NOTE | 2017-02-28 15:35 | PN ---
DATE OF SERVICE: 02/26/17 SUBJECTIVE: The patient was admitted with weakness and UTI. The patient had been walking better. Complains of mid thoracic spine pain. Thoracic spine CT scan shows there is a sclerosis of T11 vertebra, primary neoplasm correlation. The patient does not have prostate tumor. He has been seen by a urologist in the past for prostate. PSA is highly elevated. In view of this, I suspect prostate cancer on the patient which was discussed with the patient's daughter, Aleisha. REVIEW OF SYSTEMS: CONSTITUTIONAL: No fever, no chills. HEENT: Normal. ENDOCRINE: No weight gain, no weight loss. CVS: No angina symptoms. No CHF symptoms. No palpitations. No atypical chest pain for CAD. No shortness of breath. No PND, no orthopnea. RESPIRATORY: No cough, no hemoptysis. GI: No nausea, no vomiting. No abdominal pain. : No hematuria. No polyuria. MUSCULOSKELETAL:. No joint swelling. PSYCHIATRIC: Not anxious. No depression. No suicidal thoughts. No homicidal thoughts. SKIN: Intact. No rash. PHYSICAL EXAMINATION: V/S: BP 177/83, respiratory rate 18, heart rate 64, temperature 97.1, saturation 99 on room air. HEENT: Normocephalic, atraumatic. Mucosa dry. pallor positive. No icterus. NECK: Supple. No JVD, no carotid bruit. No lymphadenopathy. LUNGS: Decreased air entry, clear to auscultation. No rales or rhonchi. Mid thoracic pain, tenderness present. No rash. HEART: S1, S2 normal. No S3. No murmur, gallop or regurgitation. ABDOMEN: Soft, nontender. Bowel sounds active. No rigidity. No rebound or guarding. No CVA tenderness. EXTREMITIES: No clubbing, cyanosis or pedal edema. MUSCULOSKELETAL: No joint swelling. NEUROLOGIC: Awake, alert, oriented times three. No focal deficit. LYMPHATIC: No lymph nodes palpable. SKIN: Intact. LABS: Sodium 142, potassium 4.4, chloride 104, bicarb 29, BUN 38, creatinine 1.52. White count 5.81, hemoglobin 11.1, hematocrit 35.0, platelet 217. ASSESSMENT: 1. 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 Questionable prostate cancer 3. UTI 4. Anemia 5. Chronic kidney disease 6. Osteoarthritis 7. Alzheimer's dementia with behavioral changes PLAN: 1. Discussed risks, benefits and complications of the T11 vertebral lesion. The patient's daughter is thinking of course as the patient's age is 86 and what she wants to do. She is the power of state attorney. TIME SPENT: More than 35 minutes MTDD
[2017-02-28] MEDS: SEROQUEL PO SCH (19:59)
[2017-02-28] MEDS: LEXAPRO PO SCH (19:59)
[2017-02-28] MEDS: NEURONTIN PO SCH (20:00)
[2017-02-28] MEDS: LIPITOR PO SCH (20:00)
[2017-02-28] MEDS: ARICEPT PO SCH (20:00)
[2017-03-01] MEDS: FLAGYL PO SCH ×2 (04:36→12:50)
[2017-03-01 06:10] VITALS: BP 159/79; TEMP 98.7
[2017-03-01] MEDS: LOVENOX SUBCUT SCH (11:46)
[2017-03-01] MEDS: LOPRESSOR PO SCH (11:47)
[2017-03-01] MEDS: APRESOLINE PO SCH ×2 (11:47→12:44)
[2017-03-01] MEDS: COZAAR PO SCH (11:47)
[2017-03-01] MEDS: DITROPAN XL PO SCH (11:49)
[2017-03-01] MEDS: DEPAKOTE SPRINKLES PO SCH (11:49)
[2017-03-01] MEDS: FERROUS SULFATE PO SCH ×2 (11:50→15:06)
[2017-03-01] MEDS: MULTIVITAMIN TABLET PO SCH (11:50)
[2017-03-01] MEDS: NAMENDA PO SCH ×2 (11:50)
[2017-03-01] MEDS: CALMOSEPTINE OINTMENT TP SCH (11:50)
[2017-03-01] MEDS: OMNICEF PO SCH (11:50)
--- NOTE | 2017-03-01 14:51 | PN ---
DATE OF SERVICE: 03/01/17 SUBJECTIVE: I talked with Dr. Flower about the T11 sclerotic lesion and he suggested to do MRI. The patient is scheduled for MRI today. Physical Therapy has cleared the patient. The patient has been active, awake, ambulating. REVIEW OF SYSTEMS: CONSTITUTIONAL: No fever, no chills. HEENT: Normal. ENDOCRINE: No weight gain, no weight loss. CVS: No angina symptoms. No CHF symptoms. No palpitations. No atypical chest pain for CAD. No shortness of breath. No PND, no orthopnea. RESPIRATORY: No cough, no hemoptysis. GI: No nausea, no vomiting. No abdominal pain. : No hematuria. No polyuria. MUSCULOSKELETAL: No joint swelling. PSYCHIATRIC: Not anxious. No depression. No suicidal thoughts. No homicidal thoughts. SKIN: Intact. No rash. PHYSICAL EXAMINATION: V/S: BP 159/79, respiratory rate 18, heart rate 71, temperature 98.7, saturation 98. HEENT: Normocephalic, atraumatic. Mucosa dry, pallor positive. No icterus. NECK: Supple. No JVD, no carotid bruit. No lymphadenopathy. LUNGS: Bilaterally entry decreased and clear to auscultation. No rales or rhonchi. HEART: S1, S2 normal. No S3. No murmur, gallop or regurgitation. ABDOMEN: Soft, nontender. Bowel sounds active. No rigidity. No rebound or guarding. No CVA tenderness. EXTREMITIES: 1+ edema. No clubbing or cyanosis. MUSCULOSKELETAL: No joint swelling. NEUROLOGIC: Awake, alert. No focal deficit. LYMPHATIC: No lymph nodes palpable. SKIN: Intact. LABS: White count 5.44, hemoglobin 10.9, hematocrit 34.7, platelet count 216. Sodium 142, potassium 4.4, chloride 106, bicarb 29, BUN 44, creatinine 1.41. ASSESSMENT: 1. T11 SCLEROTIC LESION, WILL GET MRI OF THE THORACIC SPINE 2. UTI, ORGANISM E. COLI 3. CHRONIC KIDNEY DISEASE 4. ANEMIA 5. DEPENDENT EDEMA 6. ELEVATED PSA LEVEL, WILL HAVE DR. MCFARLANE FOLLOWUP OUTPATIENT PLAN: 1. Dr. Mcfarlane followup 2. MRI results followup 3. Fall precautions 4. Most likely will discharge home today TIME SPENT: More than 35 minutes MTDD
--- NOTE | 2017-03-01 15:23 | PN ---
DATE OF SERVICE: 02/27/17 SUBJECTIVE: Admitted with weakness, tiredness, and UTI from [facility]. The patient was having mid thoracic pain. CT of the thoracic spine showed sclerosis of the thoracic spine and questionable metastasis. PSA 92. The patient does not have any weakness or tingling in the lower extremity, walking good. REVIEW OF SYSTEMS: CONSTITUTIONAL: Weakness, tiredness. No fever, no chills. HEENT: Normal. ENDOCRINE: No weight gain, no weight loss. CVS: No angina symptoms. No CHF symptoms. No palpitations. No atypical chest pain for CAD. No shortness of breath. No PND, no orthopnea. RESPIRATORY: No cough, no hemoptysis. GI: No nausea, no vomiting. No abdominal pain. : No hematuria. No polyuria. MUSCULOSKELETAL: No joint swelling. PSYCHIATRIC: Not anxious. No depression. No suicidal thoughts. No homicidal thoughts. SKIN: Intact. No rash. PHYSICAL EXAMINATION: V/S: BP 151/74, respiratory rate 16, heart rate 72, temperature 97.2, saturation 98. HEENT: Normocephalic, atraumatic. Mucosa dry, pallor positive. No icterus. NECK: Supple. No JVD, no carotid bruit. No lymphadenopathy. LUNGS: Clear to auscultation. No rales or rhonchi. HEART: S1, S2 normal. No S3. No murmur, gallop or regurgitation. ABDOMEN: Soft, nontender. Bowel sounds active. No rigidity. No rebound or guarding. No CVA tenderness. Mid thoracic tenderness. No rash. EXTREMITIES: 1+ edema. No clubbing or cyanosis, NEUROLOGIC: Normal. MUSCULOSKELETAL: No joint swelling. LYMPHATIC: No lymph nodes palpable. SKIN: Intact. LABS: White count 5.81, hemoglobin 11.1, hematocrit 35.8, platelet count 271. Sodium 142, potassium 4.4, chloride 104, bicarb 29, BUN 38, creatinine 1.52. ASSESSMENT: 1. Elevated PSA 2. T11 sclerotic lesion 3. Chronic kidney disease 4. Anemia 5. UTI 6. Alzheimer's dementia with behavioral changes PLAN: 1. Continue Omnicef 2. Fall precautions 3. Lovenox for DVT prophylaxis 4. Aricept TIME SPENT: More than 35 minutes MTDD
--- NOTE | 2017-03-01 15:36 | PN ---
DATE OF SERVICE: 02/28/17 SUBJECTIVE: Discussed the patient's case with the patient's daughter, Aleisha, who is the power of boiler operator helper. Discussed about the T11 lesion which is a sclerosis lesion on the vertebra, CT of the vertebra. She did have a concern that if there is any fracture and what would the complications be. We told her that we would get a spine surgeon consultation and see what they recommend. Otherwise, the patient is walking pretty good still. He has had diarrhea 2 to 3 times today. No fever, no chills. No abdominal pain. No nausea or vomiting. REVIEW OF SYSTEMS: CONSTITUTIONAL: No fever, no chills. HEENT: Normal. ENDOCRINE: No weight gain, no weight loss. CVS: No angina symptoms. No CHF symptoms. No palpitations. No atypical chest pain for CAD. No shortness of breath. No PND, no orthopnea. RESPIRATORY: No cough, no hemoptysis. GI: Positive for diarrhea. No nausea, no vomiting. No abdominal pain. : No hematuria. No polyuria. MUSCULOSKELETAL: No joint swelling. PSYCHIATRIC: Not anxious. No depression. No suicidal thoughts. No homicidal thoughts. SKIN: Intact. No rash. PHYSICAL EXAMINATION: V/S: BP 126/60, respiratory rate 20, heart rate 70, temperature 97.1, saturation 98 on room air. HEENT: Normocephalic, atraumatic. Mucosa dry. Pallor positive. NECK: Supple. No JVD, no carotid bruit. No lymphadenopathy. LUNGS: Clear to auscultation. No rales or rhonchi. HEART: S1, S2 normal. No S3. No murmur, gallop or regurgitation. ABDOMEN: Soft, nontender. Bowel sounds active. No rigidity. No rebound or guarding. No CVA tenderness. EXTREMITIES: 1+ edema. No clubbing or cyanosis. MUSCULOSKELETAL: No joint swelling. NEUROLOGIC: Awake, alert. No focal deficit. LYMPHATIC: No lymph nodes palpable. SKIN: Intact and dry. LABS: White count 5.44, hemoglobin 10.9, hematocrit 34.7, platelet count 216. Sodium 142, potassium 4.4, chloride 106, bicarb 29, BUN 44, creatinine 1.41. ASSESSMENT: 1. ELEVATED PSA 92.3 2. T11 SCLEROTIC LESION ON THE THORACIC VERTEBRA 3. CHRONIC KIDNEY DISEASE 4. ANEMIA 5. UTI ORGANISM E. COLI 6. ALZHEIMER'S DEMENTIA WITH BEHAVIORAL CHANGES PLAN: 1. Discussed the case with Dr. Flower at [facility]. He suggested to get MRI and he will see the patient as a followup. 2. Discharge possibly if the MRI is fine and within normal limits. 3. Continue the Omnicef. 4. Continue the rest of the home medications. TIME SPENT: More than 35 minutes today KETTY
--- NOTE | 2017-03-01 21:54 | MRI ---
EXAM: MRI thoracic spine without and with IV contrast. DATE: 01 March 2017. HISTORY: Follow-up abnormal CT scan. TECHNIQUE: Sagittal and axial T1W, T2W, and T1W postcontrast sequences of the thoracic spine along w ith sagittal IR and coronal T2W sequences were obtained using 1.2 Lesli magnet. Note: Grainy appearance on multiple sequences limit sensitivity. CONTRAST: Omniscan - 15 ml IV. COMPARISON: CT T-spine 24 February 2017. FINDINGS: Visible portion of the lower cervical spine demonstrates reversal of cervical lordosis at C5-6. Posterior disc /osteophyte complexes appear to cause mild C2-3, marked C3-4, marked C4-5, shellie ed C5-6 and moderate C6-7 central canal stenoses. No definitive cervical cord edema, syrinx, or myelo malacia is evident. Large anterior osteophytes and mild T2W/ IR hyperintensity anterior to the lower cervical vertebra are observed, but not optimally visualized.. Patient is kyphotic and cervical coi l could not be applied. There are 12 thoracic vertebra with paired ribs. Mild rightward curvature the mid thoracic spine is evident. Prominent bridging osteophytes are demonstrated in multiple mid and lower thoracic vertebra . No acute T-spine fracture, subluxation, or jumped facet is apparent. T2W/T1W dark, IR bright sign al throughout much of the T11 vertebral body correlates with sclerotic region on the recent CT scan. similar 10 mm focus is noted within the posterior superior aspect of the T10 vertebral body. Interv ertebral discs are normal in height. T2W/T1W bone marrow signal is somewhat heterogeneous. Conus medu llaris terminates near L1. No definitive thoracic cord edema, syrinx, myelomalacia, or neoplasm is s een. No abnormal contrast enhancement identified within the spinal cord, nerve roots, or interverteb ral discs. There is mild enhancement of the T11 vertebral body lesion. Visible trachea and mainstem bronchi are normal. An air-fluid level is identified within the mid tho racic esophagus. No aortic aneurysm or dissection is evident. T2W slightly bright, T1W intermediate , and enhancing 4.6 x 7 mm focus is observed in the right lung apex on axial image #6. Tiny areas of apparent scarring are seen at both lung apices. Minor interstitial thickening is seen in the depend ent portion of each lung. No definitive pneumonia or pleural effusion at the lung. No acute rib fra cture, distinct rib lesion, or chest wall malignancy. Visible portions of the liver, spleen, adrenal glands and left kidney are normal. Right moderate hydronephrosis and left pelvicaliectasis vs mild hydronephrosis are demonstrated . Segmental analysis: T1-2: Broad posterior disc bulge contacts the right anterolateral margin the cord and causes moderat e central canal stenosis. Mild bilateral foraminal stenoses due to facet disease. T2-3: Minor posterior disc bulge causes mild central canal stenosis, but does not contact the cord. Each foramen is patent. T3-4: Minor posterior to right paracentral disc bulge does not contact the cord;, there is slight ri ght anterolateral cord flattening. No central canal stenosis or foraminal stenosis. T4-5: Minor posterior disc bulge does not cause cord compression or central stenosis. Minor bilater al foraminal narrowing is due to mild facet arthropathy. T5-6: Small posterior disc bulge does not contact the cord or cause central stenosis. Each foramen is patent. T6-7: Normal, except for minor bilateral foraminal narrowing due to mild facet arthropathy. T7-8: Minor posterior disc bulge and minor facet arthropathy do not cause cord compression, central stenosis or foraminal stenosis. T8-9: Normal, except for minor left facet arthropathy. T9-10: Normal, except for mild bilateral foraminal narrowing due to mild facet arthropathy. T10-11: Normal, except for mild bilateral facet arthropathy. T11-12: Normal. T12-L1: Minimal left foraminal disc protrusion causes minimal left foraminal narrowing. No central canal stenosis. IMPRESSIONS: Unexpected findin. IR bright lesions in the T10 and T11 vertebra - consider metastatic disease. Bone scan may be helpful to confirm / exclude metabolically active process. 2.Thoracic spine mild dextroscoliosis, marked spondylosis (consider DISH), mild facet arthropathy, an d multilevel mild DDD. 3. Moderate T1-2 and mild T2-3 central canal stenoses. 4. Multilevel thoracic foraminal stenoses (minor/mild). 5. Bone marrow fatty infiltration / osteopenia. 6. Multilevel high-grade cervical central canal stenoses. 7. Marked cervical spondylosis, reversal of lordosis, and multilevel DDD 8. Bilateral hydronephrosis (moderate right, mild left). 9. Esophageal air-fluid level - consider esophageal reflux. Unexpected findin. Bilateral apical lung scarring. Tiny enhancing focus in the right lung ape x may represent scar tissue versus a nodule. A short interval follow-up CT scan in 3-6 months is rec ommended to assess for stability vs interval growth. Note: MRI of the T-spine is limited as described.
--- NOTE | 2017-03-02 13:41 | PN ---
DATE OF SERVICE: 02/26/17 SUBJECTIVE: The patient was admitted with the weakness and UTI. The patient had been walking better. Complains about the mid thoracic spine pain. Thoracic spine per CAT scan does show that there was a sclerosis of T11 vertebral primary neoplasm correlation. The patient does not have tumor. He was being seen by radiologist in the past for the prostate. PSA is highly elevated. In review of the setting i suspect prostate cancer on the patient which was discussed with the patient's daughter, Aleisha. REVIEW OF SYSTEMS: CONSTITUTIONAL: No fever, no chills. HEENT: Normal. ENDOCRINE: No weight gain, no weight loss. CVS: No angina symptoms. No CHF symptoms. No palpitations. No atypical chest pain for CAD. No shortness of breath. No PND, no orthopnea. RESPIRATORY: No cough, no hemoptysis. GI: No nausea, no vomiting. No abdominal pain. : No hematuria. No polyuria. MUSCULOSKELETAL: No joint swelling. PSYCHIATRIC: Not anxious. No depression. No suicidal thoughts. No homicidal thoughts. SKIN: Intact. No rash. PHYSICAL EXAMINATION: V/S: Blood pressure 177/83, respiratory rate 18, heart rate 64, temperature 97.1 , saturation 99 on room air. HEENT: Normocephalic, atraumatic. Mucosa dry. Pallor positive. No icterus. NECK: Supple. No JVD, no carotid bruit. No lymphadenopathy. LUNGS: Decreased and clear to auscultation. No rales or rhonchi. HEART: S1, S2 normal. No S3. No murmur, gallop or regurgitation. ABDOMEN: Soft, nontender. Bowel sounds active. No rigidity. No rebound or guarding. No CVA tenderness. EXTREMITIES: No clubbing, cyanosis or pedal edema. Mid thoracic pain tenderness is present. No rash. MUSCULOSKELETAL: No joint swelling. NEUROLOGIC: Awake, alert, oriented times three. No focal deficit. LYMPHATIC: No lymph nodes palpable. SKIN: Intact. LABS: Sodium 142, potassium 4.4, chloride 104, bicarb 29, BUN 38, creatinine 1.52, WBC 5.81, hgb 11.2, hct 35.3, plt count 270. ASSESSMENT: 1. T11 vertebral lesion most likely from the metastasis 2. Questionable prostate cancer 3. UTI 4. Anemia 5. Chronic kidney disease 6. Osteoarthritis 7. Alzheimer's Dementia with behavioral changes. PLAN: 1. Discuss risk and benefits and complications of the T11 vertebral lesion 2. The patient's daughter is thinking about the further course as the patient' s age is 86 and how far she wants to do. She is power of collections attorney. TIME SPENT: More than 35 minutes MTDD
--- NOTE | 2017-03-02 15:32 | PN ---
DATE OF SERVICE: 02/25/17 SUBJECTIVE: The patient's CAT scan of the Thoracic spine showed T11 sclerotic lesion and questionable malignancy or metastasis there. The patient did not have any history of neoplasm. We will be checking for the prostate as it is a bone spread. Complains some with thoracic pain otherwise he is walking good. Physical therapy says that the patient is doing good. REVIEW OF SYSTEMS: CONSTITUTIONAL: No fever, no chills. HEENT: Normal. ENDOCRINE: No weight gain, no weight loss. CVS: No angina symptoms. No CHF symptoms. No palpitations. No atypical chest pain for CAD. No shortness of breath. No PND, no orthopnea. RESPIRATORY: No cough, no hemoptysis. GI: No nausea, no vomiting. No abdominal pain. : No hematuria. No polyuria. MUSCULOSKELETAL: No joint swelling. PSYCHIATRIC: Not anxious. No depression. No suicidal thoughts. No homicidal thoughts. SKIN: Intact. No rash. PHYSICAL EXAMINATION: V/S: Blood pressure 167/67, respiratory rate 18, heart rate 71, temperature 97.9 , saturation is 97%. HEENT: Normocephalic, atraumatic. Mucosa dry. NECK: Supple. No JVD, no carotid bruit. No lymphadenopathy. LUNGS: Bilateral entry is decreased and clear to auscultation. No rales or rhonchi. HEART: S1, S2 normal. No S3. No murmur, gallop or regurgitation. ABDOMEN: Soft, nontender. Bowel sounds active. No rigidity. No rebound or guarding. No CVA tenderness. EXTREMITIES: No clubbing, cyanosis or pedal edema. Thoracic pain is present on examination. MUSCULOSKELETAL: No joint swelling. NEUROLOGIC: Awake, alert, oriented times three. No focal deficit. LYMPHATIC: No lymph nodes palpable. SKIN: Intact. LABS: Sodium 143, potassium 4.7, chloride 107, bicarb 32, BUN 32,creatinine 1.36, WBC 5.81, hgb 11.1, hct 35.3, plt count 217. ASSESSMENT: 1. T11 sclerotic lesion of T11 vertebra 2. Question for the metastasis no primary source 3. Recent UTI 4. Alzheimer's dementia with behavioral changes 5. Chronic renal failure 6. Osteoarthritis PLAN: 1. PSA 92, will talk with the patient's daughter and discuss the findings and explain the possibilities and we will decided and leave it to the daughter for what exact treatment she will be wanting as she is power of estate attorney for the patient given his age of 86. TIME SPENT: More than 35 minutes MTDD
--- NOTE | 2017-03-13 09:35 | DS ---
DATE OF SERVICE: 03/01/17 FINAL DIAGNOSIS: 1. WEAKNESS/DEBILITY 2. UTI, ORGANISM E. COLI 3. ALZHEIMER'S DEMENTIA WITH BEHAVIORAL CHANGES 4. T11 SCLEROTIC LESION MOST LIKELY FROM METASTASIS 5. ELEVATED PSA (92) 6. PROSTATE CANCER 7. HISTORY OF BPH 8. ANEMIA 9. OSTEOARTHRITIS DISCHARGE INSTRUCTIONS: Discharge the patient home with the daughter. Followup appointments: Dr. Carvajal at the [facility] 03/07/[address] Mcfarlane, [facility], 03/06/17 at 10:30 a.m. MEDICATIONS AT DISCHARGE: Memantine 10 mg p.o. b.i.d. Aricept 23 mg p.o. daily Escitalopram 20 mg p.o. daily Atorvastatin 20 mg p.o. bedtime Ferrous Sulfate 325 mg p.o. t.i.d. Ditropan XL 10 mg p.o. daily Folic acid/multivitamin one tab p.o. daily Seroquel 25 mg p.o. bedtime Cozaar 100 mg p.o. daily Depakote sprinkle 125 mg p.o. b.i.d. MEDICATION CHANGES: Stop Bisoprolol Stop Neurontin NEW PRESCRIPTIONS: Lopressor 25 mg p.o. twice a day Naproxen 250 mg take one p.o. twice daily as needed for pain p.r.n. DIET INSTRUCTIONS: Cardiac and Healthy; low salt diet. ACTIVITY: Get plenty of rest at home. Gradually increase your activity level according to your toleration. Keep legs elevated when resting. SMOKING: N/A DISEASE SPECIFIC EDUCATION: Medication use Fall precaution Elevated PSA with vertebral lesion, risk of prostate cancer with metastasis has been discussed with the patient's daughter in detail, verbalized understanding. HOSPITAL COURSE: This is an 86-year-old gentleman who was recently admitted to the [facility] after having a change in mental status, confusion, found to have urinary tract infection. The patient also had behavioral changes with Alzheimer's dementia, was started on depakote and Seroquel. With the given medication, the patient was feeling better psychology and neurologically but the patient was still needing physical therapy and outpatient therapy. At that time, the patient was transferred to [facility] and physical therapy and occupational therapy was started. The patient was complaining of some abdominal pain. CT abdomen and pelvis was done. Did not find any acute findings but had some sclerotic lesion on the CT of the thoracic spine. At that time in view of bone lesion, bone metastasis was suspected and we did PSA which was 92. CT of the abdomen and pelvis also showed left-sided moderate hydronephrosis due to distended urinary bladder. Left nephrolithiasis although no obstruction or left ureteric calculi are identified. These findings were discussed with the patient's daughter and the patient's daughter verbalized understanding. I personally talked to Dr. Flower on the phone. He did say because of the sclerosis and metastatic lesion to get MRI and call him back if we need any help. At that time, the patient was discharged home. MRI was done. At time of discharge, MRI results were pending. The patient's daughter was discussed about the course. The vertebral fracture is very high risk and the patient could be paralyzed below the legs and may have problem with urination and defecation. She does verbalize understanding. TIME SPENT: MORE THAN 65 to 70 MINUTES TODAY KETTY
== END 2017-03-01 16:05 | disposition home or self-care (01) | DRG 948 ==
LOC: MEDSURG B 13:43
PROVIDERS: ADMIT Emergency Medicine; ATTEND Emergency Medicine
DX: R53.1 Weakness (principal); F02.81 Dementia in other diseases classified elsewhere, unspecified severity, with behavioral disturbance; N17.9 Acute kidney failure, unspecified; C79.51 Secondary malignant neoplasm of bone; N13.30 Unspecified hydronephrosis; M89.9 Disorder of bone, unspecified; R97.21 Rising PSA following treatment for malignant neoplasm of prostate; Z87.440 Personal history of urinary (tract) infections; R53.81 Other malaise; G30.8 Other Alzheimer's disease; D64.9 Anemia, unspecified; N32.89 Other specified disorders of bladder; I10 Essential (primary) hypertension; I12.9 Hypertensive chronic kidney disease with stage 1 through stage 4 chronic kidney disease, or unspecified chronic kidney disease; N18.9 Chronic kidney disease, unspecified; M19.90 Unspecified osteoarthritis, unspecified site; R10.9 Unspecified abdominal pain; E78.5 Hyperlipidemia, unspecified; M47.9 Spondylosis, unspecified; R60.0 Localized edema; B96.20 Unspecified Escherichia coli [E. coli] as the cause of diseases classified elsewhere; Z85.46 Personal history of malignant neoplasm of prostate; Z79.899 Other long term (current) drug therapy
CPT/HCPCS: 36415; 80053; 85025; 87015; 87045; 87081; 87177; 87493; 87899; 97802

== ENCOUNTER 2017-04-05 09:05 | Outpatient (CLI) | END 2017-04-05 09:06 | disposition left against medical advice (07) | LOC: AMBL 09:05 | PROVIDERS: ATTEND Internal Medicine | DX: R53.1 Weakness (principal); W19.XXXA Unspecified fall, initial encounter ==

== ENCOUNTER 2017-05-10 17:38 | Emergency (ER) ==
[2017-05-10 17:46] VITALS: TEMP 99.3; BMI 24.5
--- NOTE | 2017-05-10 18:03 | ED.PDOC ---
General ED Provider: Dr. JEANETTE HAMILTON Chief Complaint: Nausea/Vomiting Stated Complaint: n/v/ abdominal pain Time Seen by Physician: 17:50 (fell today denied neck pain or back pain has mets to his lower spine) Mode of Arrival: Ambulance Information Source: Patient, Family Exam Limitations: No limitations [facility] Nursing and Triage Documentation Reviewed and Agree: Yes Reviewed sepsis parameters & appropriate labs ordered?: Yes System Inflammatory Response Syndrome: Not Applicable Sepsis Protocol: For patient's 13 years and over: Temp is 96.8 and below OR 101 and greater Pulse >90 BPM Resp >20/minute Acutely Altered Mental Status Are patient's symptoms suggestive of a new infection, such as: -Pneumonia -Skin, Soft Tissue -Endocarditis -UTI -Bone, Joint Infection -Implantable Device -Acute Abdominal Infection -Wound Infection -Meningitis -Blood Stream Catheter Infection -Unknown System Inflammatory Response Syndrome: Not Applicable GI Complaint Exam - Abdominal Pain Complaint/Exam Onset: Gradual Duration: today but arrived in no pain or distress denied neck or back pain AOX3 Symptoms Are: Resolved Initial Severity: Mild Current Severity: None Location of Pain: Diffuse Character: Reports: Dull Aggravating: Reports: None Alleviating: Reports: None Associated Signs and Symptoms: Reports: Cough. Denies: Diaphoresis, Fever, Chest pain, Dizziness, Back pain, Constipation, Blood in stool, Dysuria, Urinary frequency, Decreased urine output, Decreased appetite, Discharge, Nausea , Vomiting, Diarrhea, Decreased activity Review of Systems - Review Of Systems Constitutional: Reports: No symptoms Eyes: Reports: No symptoms Ears, Nose, Mouth, Throat: Reports: No symptoms Respiratory: Reports: No symptoms Cardiac: Reports: No symptoms GI: Reports: Abdominal pain, Nausea, Vomiting : Reports: No symptoms Musculoskeletal: Reports: No symptoms Skin: Reports: No symptoms Neurological: Reports: No symptoms Endocrine: Reports: No symptoms Hematologic/Lymphatic: Reports: No symptoms All Other Systems: Reviewed and Negative Past Medical History - Past Medical History Previously Healthy: No Endocrine: Reports: Dyslipidemia Cardiovascular: Reports: Hypertension Respiratory: Reports: None Hematological: Reports: None Gastrointestinal: Reports: GERD Genitourinary: Reports: None Neuro/Psych: Reports: None Musculoskeletal: Reports: None Cancer: Reports: None - Surgical History General Surgical History: Reports: None - Family History Family History: Reports: None - Social History Smoking Status: Former smoker Hx Substance Use: No Alcohol Screening: None - Immunizations Tetanus Shot up to Date: Yes Physical Exam - Physical Exam Appearance: Well-appearing, No pain distress, Well-nourished Eyes: LUZ, EOMI, Conjunctiva clear ENT: Ears normal, Nose normal, Oropharynx normal Respiratory: Airway patent, Breath sounds clear, Breath sounds equal, Respirations nonlabored Cardiovascular: RRR, Pulses normal, No rub, No murmur GI/: Soft, Nontender, No masses, Bowel sounds normal, No Organomegaly Musculoskeletal: Normal strength, ROM intact, No edema, No calf tenderness Skin: Warm, Dry, Normal color Neurological: Sensation intact, Motor intact, Reflexes intact, Cranial nerves intact, Alert, Oriented Psychiatric: Affect appropriate, Mood appropriate Critical Care Note - Critical Care Note Total Time (mins): 0 Course - Course Hematology/Chemistry: 05/10/17 18:20 05/10/17 18:20 Orders, Labs, Meds: Lab Review 05/10/17 05/10/17 05/10/17 18:00 18:20 18:20 WBC 8.62 RBC 3.37 L Hgb 10.0 L Hct 30.5 L MCV 90.5 MCH 29.7 MCHC 32.8 RDW Coeff of Alok 14.5 Plt Count 140 Immature Gran % (Auto) 0.3 Neut % (Auto) 83.4 Lymph % (Auto) 7.4 L Pershing % (Auto) 7.9 Eos % (Auto) 0.5 Baso % (Auto) 0.5 Immature Gran # (Auto) 0.0 Neut # (Auto) 7.2 H Lymph # (Auto) 0.6 Pershing # (Auto) 0.7 Eos # (Auto) 0.0 Baso # (Auto) 0.0 Sodium 141 Potassium 4.8 Chloride 105 Carbon Dioxide 30 Anion Gap 10.8 BUN 35 H Creatinine 1.42 H Estimated GFR (MDRD) 57.00 BUN/Creatinine Ratio 24.64 Glucose 115 Calcium 9.2 Total Bilirubin 0.3 AST 26 ALT 16 Alkaline Phosphatase 73 Total Creatine Kinase 237 CK-MB (CK-2) 3.8 H CK-MB (CK-2) % 1.98795 Troponin I 0.0200 Total Protein 6.2 Albumin 3.3 L Globulin 2.9 Albumin/Globulin Ratio 1.14 Procalcitonin Urine Color Urine Clarity Urine pH Ur Specific [place] Urine Protein Urine Glucose (UA) Urine Ketones Urine Blood Urine Nitrite Urine Bilirubin Urine Urobilinogen Ur Leukocyte Esterase Urine Microscopic RBC Urine Microscopic WBC Ur Squamous Epith Cells Urine Bacteria Urine Mucus Influ A Molecular Assay Negative by naat Influ B Molecular Assay Negative by naat 05/10/17 05/10/17 18:20 20:00 WBC RBC Hgb Hct MCV MCH MCHC RDW Coeff of Alok Plt Count Immature Gran % (Auto) Neut % (Auto) Lymph % (Auto) Pershing % (Auto) Eos % (Auto) Baso % (Auto) Immature Gran # (Auto) Neut # (Auto) Lymph # (Auto) Pershing # (Auto) Eos # (Auto) Baso # (Auto) Sodium Potassium Chloride Carbon Dioxide Anion Gap BUN Creatinine Estimated GFR (MDRD) BUN/Creatinine Ratio Glucose Calcium Total Bilirubin AST ALT Alkaline Phosphatase Total Creatine Kinase CK-MB (CK-2) CK-MB (CK-2) % Troponin I Total Protein Albumin Globulin Albumin/Globulin Ratio Procalcitonin 0.05 Urine Color Yellow Urine Clarity Clear Urine pH 8.0 Ur Specific [place] 1.020 Urine Protein 1+ Urine Glucose (UA) Negative Urine Ketones Negative Urine Blood Trace-intact Urine Nitrite Negative Urine Bilirubin Negative Urine Urobilinogen 0.2 Ur Leukocyte Esterase Negative Urine Microscopic RBC 2-5 Urine Microscopic WBC 2-5 Ur Squamous Epith Cells 2-5 Urine Bacteria 1+ Urine Mucus Trace Influ A Molecular Assay Influ B Molecular Assay Orders Category Date Time Status EKG-(ED ONLY) Stat CARDIO 05/10/17 17:58 Completed ED IV/MEDIPORT/POWERPORT .ONCE EMERGENCY 05/10/17 17:58 Active BLOOD CULTURE (ED ONLY) Stat LAB 05/10/17 18:20 Completed CBC W/ AUTO DIFF Stat LAB 05/10/17 18:20 Completed COMPREHENSIVE METABOLIC PANEL Stat LAB 05/10/17 18:20 Completed CREATINE KINASE Stat LAB 05/10/17 18:20 Completed FLU A/B MOLECULAR Stat LAB 05/10/17 18:00 Completed PROCALCITONIN Stat LAB 05/10/17 18:20 Completed TROPONIN I Stat LAB 05/10/17 18:20 Completed URINALYSIS C & S IF INDICATED Stat LAB 05/10/17 20:00 Completed URINE CULTURE Stat LAB 05/10/17 20:00 Completed 0.9 % Sodium Chloride [Saline Flush] MEDS 05/10/17 17:58 Discontinued 1 syr IVF PRN PRN CT ABDOMEN/PELVIS WO CONTRAST Stat RADS 05/10/17 18:[address] CHEST W/O CONTRAST Stat RADS 05/10/17 18:00 Completed Medications Discontinued Medications Generic Name Dose Route Start Last Admin Trade Name Freq PRN Reason Stop Dose Admin Sodium Chloride 1 syr 05/10/17 17:58 Saline Flush IVF PRN PRN To flush IV Vital Signs: Temp Pulse Resp BP Pulse Ox 05/10/17 20:33 158/83 H 05/10/17 20:02 169/86 H 05/10/17 19:47 147/77 H 100 05/10/17 19:18 149/66 H 100 05/10/17 19:00 157/85 H 98 05/10/17 17:38 99.3 F 70 18 166/78 H 100 Departure - Departure Time of Disposition: 18:03 Disposition: HOME SELF-CARE Discharge Problem: Nausea, Vomiting, Abdominal pain Instructions: Abdominal Pain (ED) Condition: Good Pt referred to PMD for follow-up: Yes IPMP verified?: No Additional Instructions: Please call your Family Physician as soon as possible to schedule a follow-up appointment. Allergies/Adverse Reactions: Allergies No Known Allergies Allergy (Unverified 02/15/13 07:56) Home Medications: Ambulatory Orders Folic Acid/Multivit,Iron,[place] [Centrum Chewable Tablet] 1 tab PO DAILY Gabapentin 300 mg PO BEDTIME #30 capsule 03/01/17 Calcium Carbonate/Vitamin D3 [Calcium 500-Vit D3 600 Tablet] 1 tab PO BID Degarelix Acetate [Firmagon] 80 mg SQ ONCE 05/10/17 Denosumab [Prolia] 60 mg SQ ONCE 05/10/17 Leuprolide Acetate [Lupron Depot] 3.75 mg IM ONCE 05/10/17 Disposition Discussed With: Patient, Family
--- NOTE | 2017-05-10 19:06 | CT ---
EXAM: CT scan of the chest without contrast HISTORY: Cough TECHNIQUE: Imaging of the chest was performed without contrast. 5 mm thin axial images and coronal and sagittal images were provided for interpretation. Comparison 02/24/2017 CT scan of the chest. FINDINGS: The heart is normal size. No mediastinal masses are seen. There is atherosclerotic calci fication of the thoracic aorta. Lungs are clear. A large sclerotic lesion is again seen within the T11 vertebral body. A new smaller sclerotic lesion is all see a seen along the superior endplate of T10. IMPRESSION: Sclerotic lesions are seen within the T10 and T11 vertebral bodies, concerning for metas tatic disease. Prostate cancer should be considered. No acute abnormalities are seen within the thorax otherwise.
--- NOTE | 2017-05-10 19:11 | CT ---
EXAM: CT scan of the abdomen and pelvis without contrast HISTORY: Pain TECHNIQUE: Helical imaging of the abdomen and pelvis was performed without contrast. 3 mm thin axia l images and coronal and sagittal reconstructions were provided for interpretation. Comparison CT scan of the abdomen and pelvis dated 02/23/2017. FINDINGS: The evaluation was limited without intravenous and oral contrast. The visualized liver, spleen, kidneys appear within normal limits. The proximal ureters are normal s ize. The small and large bowel loops are normal caliber. No obvious acute abnormalities are seen wi thin the pancreas. There is no free air. No acute abnormalities are seen within the anterior abdomin al wall. The images obtained through the pelvis demonstrate an appearance of the rectum, urinary bladder. The re is mild enlargement of the prostate gland indenting the base of the urinary bladder. There is no free fluid seen within the pelvis. No retroperitoneal abnormalities are seen. The appendix appears normal. Numerous sclerotic lesions are seen throughout the sacrum and thoracic spine and lumbar spine . There is a sclerotic lesion seen along the superior endplate of L4. There is a small sclerotic le jannet seen at S1. Additional small sclerotic lesions are suspected within the iliac wings. IMPRESSION: Multiple sclerotic lesions are seen within the thoracic and lumbar spine and pelvis as d escribed above concerning for metastatic disease. Prostate cancer should be considered. There is no bowel obstruction or acute inflammatory change seen within the abdomen and pelvis. Limited evaluation of the abdomen pelvis without intravenous and oral contrast.
[2017-05-10 20:33] VITALS: BP 158/83
== END 2017-05-10 20:44 | disposition home or self-care (01) ==
LOC: ED 17:38
DX: R11.2 Nausea with vomiting, unspecified (principal); R10.84 Generalized abdominal pain; R05 Cough; E78.5 Hyperlipidemia, unspecified; I10 Essential (primary) hypertension; Z79.899 Other long term (current) drug therapy; W19.XXXA Unspecified fall, initial encounter
CPT/HCPCS: 36415; 80053; 81001; 82550; 82553; 84145; 84484; 85025; 87040; 87086; 87502; 93005; 93010; 99283

== ENCOUNTER 2017-07-26 10:03 | Outpatient (CLI) | END 2017-07-26 10:04 | disposition left against medical advice (07) | LOC: AMBL 10:03 | PROVIDERS: ATTEND Internal Medicine | DX: Z74.2 Need for assistance at home and no other household member able to render care (principal); W07.XXXA Fall from chair, initial encounter ==

== ENCOUNTER 2017-07-29 20:57 | Outpatient (CLI) | END 2017-07-29 21:15 | disposition short-term general hospital (02) | LOC: AMBL 20:57 | PROVIDERS: ATTEND Internal Medicine Geriatric Medicine | DX: R26.9 Unspecified abnormalities of gait and mobility (principal); R41.0 Disorientation, unspecified; C61 Malignant neoplasm of prostate; C79.51 Secondary malignant neoplasm of bone ==

== ENCOUNTER 2017-10-02 16:27 | Inpatient (IN) | payer OTHER ==
[2017-10-02] MEDS ORDERED: TYLENOL PO PRN (16:55)
[2017-10-02 19:29] VITALS: BMI 22.6
[2017-10-02] MEDS ORDERED: ROCEPHIN 1 GM in SODIUM CHLORIDE 50 ML IV SCH (19:30)
[2017-10-02] MEDS ORDERED: NAPROXEN 250 MG PO PRN (21:09)
[2017-10-02] MEDS ORDERED: LEUPROLIDE ACETATE 3.75 MG IM SCH (21:15)
[2017-10-02] MEDS ORDERED: DEGARELIX ACETATE 80 MG SQ SCH (21:15)
[2017-10-02] MEDS ORDERED: ROCEPHIN ONE (22:09)
[2017-10-02] MEDS: SODIUM CHLORIDE 1,000 ML IV SCH (22:30)
[2017-10-02] MEDS: SEROQUEL PO SCH (22:38)
[2017-10-03] MEDS: DUONEB NEB SCH ×4 (00:15→20:15)
--- NOTE | 2017-10-03 07:32 | DI ---
EXAM: Chest one view HISTORY: Coughing COMPARISON: 02/15/2013 TECHNIQUE: Single view of the chest was performed FINDINGS: Mild chronic elevation right hemidiaphragm. The lungs are clear. There is no pleural eff usion or pneumothorax. The heart is borderline enlarged in size. The mediastinal contour is unchang ed, noting atherosclerosis. There are no acute abnormalities of the bones. Known sclerotic lesions o f lower thoracic vertebral bodies are poorly visualized. IMPRESSION: 1. No acute cardiopulmonary process. 2. Known sclerotic lesions of lower thoracic vertebral bodies are poorly visualized
[2017-10-03] MEDS ORDERED: NAPROSYN PO PRN (07:49)
[2017-10-03] MEDS: LEXAPRO PO SCH (08:40)
[2017-10-03] MEDS: DEPAKOTE SPRINKLES PO SCH ×2 (08:40→20:27)
[2017-10-03] MEDS: MULTIVITAMIN TABLET PO SCH (08:41)
[2017-10-03] MEDS: CALCIUM 500 + VIT D 200 MG TABLET PO SCH ×2 (08:41→20:28)
[2017-10-03] MEDS: FERROUS SULFATE PO SCH ×3 (08:41→20:28)
[2017-10-03] MEDS: LOPRESSOR PO SCH ×2 (08:42→20:27)
[2017-10-03] MEDS: COZAAR PO SCH (08:42)
[2017-10-03] MEDS: DITROPAN XL PO SCH (08:42)
[2017-10-03] MEDS ORDERED: MULTIVIT IRON MINER PO SCH (09:00)
[2017-10-03] MEDS ORDERED: [UNRECOGNIZED DRUG - OTHER] PO SCH (09:00)
[2017-10-03] MEDS ORDERED: NON-FORMULARY MEDICATION (Escitalopram Oxalate [Escitalopram Oxalate] 20 MG) PO SCH (09:00)
[2017-10-03] MEDS ORDERED: VITAMIN D3 T PO SCH (09:00)
[2017-10-03] MEDS ORDERED: DONEPEZIL HCL 23 MG PO SCH (09:00)
[2017-10-03] MEDS ORDERED: DIVALPROEX SODIUM 125 MG PO SCH (09:00)
[2017-10-03] MEDS ORDERED: [UNRECOGNIZED DRUG - OTHER] PO SCH (09:00)
[2017-10-03] MEDS ORDERED: NON-FORMULARY MEDICATION (Ferrous Sulfate [Ferrous Sulfate] 325 MG) PO SCH (09:00)
[2017-10-03] MEDS ORDERED: OXYBUTYNIN CHLORIDE 10 MG PO SCH (09:00)
[2017-10-03] MEDS ORDERED: NAMENDA PO SCH (09:00)
[2017-10-03] MEDS ORDERED: CALCIUM CARBONATE PO SCH (09:00)
[2017-10-03] MEDS ORDERED: FOLIC ACID PO SCH (09:00)
[2017-10-03] MEDS ORDERED: ARICEPT PO SCH (09:00)
--- NOTE | 2017-10-03 09:12 | HP ---
DATE OF SERVICE: 10/02/17 ADDENDUM SUBJECTIVE: The patient was admitted for fever. The patient had a fever of 99.7 in the hospital again. The chest x-ray does show some bibasilar infiltrate, waiting on the U/A. Will add Rocephin 1 gram daily and breathing treatments. MTDD
[2017-10-03] MEDS ORDERED: ABIRATERONE ACETATE 1000 MG PO SCH (10:15)
[2017-10-03] MEDS: ABIRATERONE ACETATE PO SCH ×2 (10:16→20:30)
[2017-10-03] MEDS: SODIUM CHLORIDE 1,000 ML IV SCH (11:01)
[2017-10-03] MEDS: NAMENDA PO SCH (13:58)
[2017-10-03] MEDS: PREDNISONE PO SCH (17:02)
--- NOTE | 2017-10-03 19:11 | CT ---
Exam: CT of the chest without intravenous contrast. Comparison: 05/10/2017. Reason for exam: Cough. FINDINGS: Ground-glass is seen in both apices. No pneumothorax, pleural effusion, or focal consolid ation. The aorta is normal in course and caliber measuring 3.7 cm at the level of the arch. Atherosclerotic disease is seen within the aorta and distal arterial vasculature including the coronary vessels. The heart is not enlarged. The visualized portions of the airway appear unremarkable. There is a column of air seen throughout the esophagus raising consideration for reflux disease. The heart is mildly prominent in size. Calcifications are seen in the left renal parenchyma. There is a right renal hypodensity measuring up to 2.7 cm in the partially imaged upper abdomen. Similar appea ring sclerotic densities are seen in the T10 and T11 vertebral bodies. There is moderate to marked d egenerative disease with large anterior osteophyte formation. Impression: 1. No acute imaging findings are seen within the thorax. 2. Similar appearing sclerotic lesions in the T10 and T11 vertebral bodies with moderate to marked d egenerative disease. 3. Column of air seen throughout the esophagus raises consideration for reflux
[2017-10-03] MEDS: ROCEPHIN 1 GM in SODIUM CHLORIDE 50 ML IV SCH (20:27)
[2017-10-03] MEDS: LIPITOR PO SCH (20:27)
[2017-10-03] MEDS: NEURONTIN PO SCH (20:28)
[2017-10-03] MEDS: SEROQUEL PO SCH (20:28)
[2017-10-03] MEDS: ARICEPT PO SCH (20:28)
[2017-10-04] MEDS: SODIUM CHLORIDE 1,000 ML IV SCH ×2 (01:29→16:43)
[2017-10-04] MEDS: DUONEB NEB SCH ×4 (04:56→20:39)
[2017-10-04] MEDS: CALCIUM 500 + VIT D 200 MG TABLET PO SCH ×2 (09:20→20:42)
[2017-10-04] MEDS: DITROPAN XL PO SCH (09:20)
[2017-10-04] MEDS: ABIRATERONE ACETATE 1000 MG PO SCH (09:20)
[2017-10-04] MEDS: LEXAPRO PO SCH (09:20)
[2017-10-04] MEDS: DEPAKOTE SPRINKLES PO SCH ×2 (09:20→20:43)
[2017-10-04] MEDS: NAMENDA PO SCH ×2 (09:21→12:55)
[2017-10-04] MEDS: FERROUS SULFATE PO SCH ×3 (09:21→20:41)
[2017-10-04] MEDS: COZAAR PO SCH (09:21)
[2017-10-04] MEDS: PREDNISONE PO SCH ×2 (09:21→16:43)
[2017-10-04] MEDS: LOPRESSOR PO SCH ×2 (09:21→20:42)
[2017-10-04] MEDS: MULTIVITAMIN TABLET PO SCH (09:21)
--- NOTE | 2017-10-04 10:20 | PN ---
DATE OF SERVICE: 10/03/17 SUBJECTIVE: The patient was admitted from the office yesterday for fever and coughing. Chest x-ray is normal but showing some chronic changes. Still has some coughing. Leg edema is some better. Has some complaints about the knee weakness and pain. REVIEW OF SYSTEMS: CONSTITUTIONAL: No fever, no chills. HEENT: Normal. ENDOCRINE: No weight gain, no weight loss. CVS: No angina symptoms. No CHF symptoms. No palpitations. No atypical chest pain for CAD. No shortness of breath. No PND, no orthopnea. RESPIRATORY: No cough, no hemoptysis. GI: No nausea, no vomiting. No abdominal pain. : No hematuria. No polyuria. MUSCULOSKELETAL: No joint swelling. PSYCHIATRIC: Not anxious. No depression. No suicidal thoughts. No homicidal thoughts. SKIN: Intact. No rash. PHYSICAL EXAMINATION: V/S: Blood pressure 144/68, respiratory rate 16, heart rate 71, temperature 95 with saturation 98%. HEENT: Normocephalic, atraumatic. Mucosa dry. Pallor positive. No icterus. NECK: Supple. No JVD, no carotid bruit. No lymphadenopathy. LUNGS: Decreased and basilar crackles. Clear to auscultation. No rales or rhonchi. HEART: S1, S2 normal. No S3. No murmur, gallop or regurgitation. ABDOMEN: Soft, nontender. Bowel sounds active. No rigidity. No rebound or guarding. No CVA tenderness. EXTREMITIES: No cyanosis, clubbing. 1+ edema. MUSCULOSKELETAL: No joint swelling. NEUROLOGIC: Awake, alert. No focal deficit. LYMPHATIC: No lymph nodes palpable. SKIN: Intact. LABS: WBC 6.16, hgb 9.1, hct 27.9, plt count 149, sodium 140, potassium 4.9, chloride 105, bicarb 28, BUN 28, creatinine 1.49 and glucose 118. ASSESSMENT: 1. Fever 2. Upper respiratory infection 3. Anemia needing iron infusion 4. Chronic renal failure 5. Prostate cancer with metastasis, endstage 6. Osteoarthritis of the knees 7. 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 CT of the chest 2. U/A 3. Continue Rocephin, Breathing treatments and IV fluids. TIME SPENT: More than 35 minutes MTDD
--- NOTE | 2017-10-04 10:59 | CT ---
EXAM: CT of the abdomen pelvis without contrast History: Fever and frequent urination. Comparison: CT abdomen pelvis 05/10/2017 Technique: Multiplanar CT images through the abdomen pelvis were obtained without the administration of IV contrast Findings: Motion artifact degrades image quality. Subsegmental atelectasis seen within the lower lucila gs. Heart is mildly enlarged. Multiple sclerotic osseous lesions are again seen within the spine and pelvis not significantly changed. Atherosclerotic vascular calcifications. No discrete gallstones identified by CT. No focal liver or splenic lesions are identified within limitations of the motion artifact. No tessy peripancreatic i nflammation. Adrenal glands are unremarkable. Bilateral renal cystic lesions are again identified. One of the lesions within the inferior pole of the right kidney measures 3.2 cm with adjacent inflamm ation was more noticeable compared to the prior studies. No change in the 4 mm calcification within the left kidney. Evaluation for lymph nodes is limited d ue to lack of contrast administration but no bulky adenopathy is seen. Bladder is mild to moderately distended. There is no focal bladder wall thickening. No perirectal inflammation. Scattered coloni c stool. No dilated loops of bowel. Fluid seen in the stomach. The appendix is not dilated or infl john. No free air and no ascites. Impression: 1. 3.2 cm cystic lesion within the inferior pole of the right kidney with adjacent inflammation is i ndeterminate. Recommend further evaluation with MR renal mass protocol. 2. No change in the sclerotic osseous metastasis. 3. Nonobstructing left nephrolithiasis
[2017-10-04] MEDS: ARICEPT PO SCH (20:41)
[2017-10-04] MEDS: NEURONTIN PO SCH (20:42)
[2017-10-04] MEDS: SEROQUEL PO SCH (20:42)
[2017-10-04] MEDS: LIPITOR PO SCH (20:43)
[2017-10-04] MEDS: ROCEPHIN 1 GM in SODIUM CHLORIDE 50 ML IV SCH (20:43)
[2017-10-05] MEDS: DUONEB NEB SCH ×4 (04:33→21:55)
[2017-10-05] MEDS: DEPAKOTE SPRINKLES PO SCH (08:54)
[2017-10-05] MEDS: DITROPAN XL PO SCH (08:54)
[2017-10-05] MEDS: ABIRATERONE ACETATE 1000 MG PO SCH (08:54)
[2017-10-05] MEDS: COZAAR PO SCH (08:55)
[2017-10-05] MEDS: PREDNISONE PO SCH ×2 (08:55→17:02)
[2017-10-05] MEDS: NAMENDA PO SCH ×2 (08:55→12:46)
[2017-10-05] MEDS: MULTIVITAMIN TABLET PO SCH (08:55)
[2017-10-05] MEDS: CALCIUM 500 + VIT D 200 MG TABLET PO SCH (08:55)
[2017-10-05] MEDS: FERROUS SULFATE PO SCH ×2 (08:55→15:10)
[2017-10-05] MEDS: LEXAPRO PO SCH (08:55)
[2017-10-05] MEDS: LOPRESSOR PO SCH (08:55)
--- NOTE | 2017-10-05 09:53 | PN ---
DATE OF SERVICE: 10/04/17 SUBJECTIVE: The patient had fever of 101 yesterday at 6:00 and no fever after that. Culture and x-ray so far are negative. REVIEW OF SYSTEMS: CONSTITUTIONAL: No fever, no chills. HEENT: Normal. ENDOCRINE: No weight gain, no weight loss. CVS: No angina symptoms. No CHF symptoms. No palpitations. No atypical chest pain for CAD. No shortness of breath. No PND, no orthopnea. RESPIRATORY: Cough, no hemoptysis. GI: No nausea, no vomiting. No abdominal pain. : No hematuria. No polyuria. MUSCULOSKELETAL: No joint swelling. PSYCHIATRIC: Not anxious. No depression. No suicidal thoughts. No homicidal thoughts. SKIN: Intact. No rash. PHYSICAL EXAMINATION: V/S: Blood pressure 153/65, respiratory rate 20, heart rate 62, temperature 98.9 with saturation 97%. HEENT: Normocephalic, atraumatic. Mucosa dry. Pallor positive. No icterus. NECK: Supple. No JVD, no carotid bruit. No lymphadenopathy. LUNGS: Decreased and clear to auscultation. No rales or rhonchi. HEART: S1, S2 normal. No S3. No murmur, gallop or regurgitation. ABDOMEN: Soft, nontender. Bowel sounds active. No rigidity. No rebound or guarding. No CVA tenderness. EXTREMITIES: No cyanosis, clubbing. 1+ edema. MUSCULOSKELETAL: No joint swelling. NEUROLOGIC: Awake, alert. No focal deficit. LYMPHATIC: No lymph nodes palpable. SKIN: Intact. LABS: WBC 6.26, hgb 8.5, hct 25.8, plt count 152, sodium 140, potassium 4.9, chloride 105, bicarb 28, BUN 28, creatinine 1.49 and glucose 114 ASSESSMENT: 1. Intermittent Fever, no focus at this time 2. Upper respiratory infection 3. Acute on chronic renal failure 4. Anemia secondary to the chronic kidney disease 5. Prostate cancer with multiple METS 6. Osteoarthritis, severe PLAN: 1. CT abdomen and pelvis 2. Continue Rocephin 3. Breathing treatments 4. DUO NEBS TIME SPENT: More than 35 minutes MTDD
--- NOTE | 2017-10-05 13:44 | MRI ---
EXAM: MRI of the abdomen with and without contrast History: Right renal mass. Comparison: CT abdomen pelvis 10/04/2017 Technique: Multiplanar, multisequence MRI images through the abdomen were obtained with and without the administration of IV contrast. 15 mL of Dotarem was given intravenously. Findings: Examination very compromised due to extensive motion artifact. Lung bases are free of consolidation. The osseous metastasis better appreciated on recent CT with the most noticeable lesion at T11 vert ebral body. The liver and spleen are not enlarged. No gallstones identified. 4 cm lesion within the inferior pole of the right kidney with areas of macroscopic fat in the more huggins perior aspect of the lesion. Portions of this lesion enhance with IV contrast. The in and out-of-ph ase images are very limited due to the motion artifact but there does appear to be some signal drop o ut within this lesion. Additional simple bilateral renal cysts measuring up to 2.2 cm on the right and the 1.9 cm on the lef t. No dilated loops of bowel. No pancreatic lesions. Adrenal glands are unremarkable. No free air and no ascites. No pathologically enlarged lymph nodes. No focal liver or splenic lesions. Portal veins are patent. Impression: 1. 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 A 6-month follow-up MRI can be obt ained to document stability. 2. Bony metastatic lesions.
[2017-10-05] MEDS: SODIUM CHLORIDE 1,000 ML IV SCH ×2 (15:10→17:02)
[2017-10-05] MEDS ORDERED: SODIUM CHLORIDE 1,000 ML IV SCH (17:30)
[2017-10-06] MEDS: DUONEB NEB SCH ×3 (05:00→14:27)
[2017-10-06] MEDS: ARICEPT PO SCH (05:21)
[2017-10-06] MEDS: DEPAKOTE SPRINKLES PO SCH ×2 (05:21→09:19)
[2017-10-06] MEDS: CALCIUM 500 + VIT D 200 MG TABLET PO SCH ×2 (05:21→09:19)
[2017-10-06] MEDS: LIPITOR PO SCH (05:22)
[2017-10-06] MEDS: FERROUS SULFATE PO SCH ×3 (05:22→13:42)
[2017-10-06] MEDS: SEROQUEL PO SCH (05:23)
[2017-10-06] MEDS: NEURONTIN PO SCH (05:23)
[2017-10-06] MEDS: LOPRESSOR PO SCH ×2 (05:23→09:20)
[2017-10-06] MEDS: ROCEPHIN 1 GM in SODIUM CHLORIDE 50 ML IV SCH (05:23)
[2017-10-06] MEDS: ABIRATERONE ACETATE 1000 MG PO SCH (09:18)
[2017-10-06] MEDS: PREDNISONE PO SCH (09:19)
[2017-10-06] MEDS: MULTIVITAMIN TABLET PO SCH (09:20)
[2017-10-06] MEDS: NAMENDA PO SCH ×2 (09:20→13:42)
[2017-10-06] MEDS: LEXAPRO PO SCH (09:20)
[2017-10-06] MEDS: COZAAR PO SCH (09:20)
[2017-10-06] MEDS: DITROPAN XL PO SCH (09:20)
--- NOTE | 2017-10-06 10:09 | PN ---
DATE OF SERVICE: 10/05/17 SUBJECTIVE: The patient is having some back pain, cough and congestion. No fever today. The patient's daughter is in the room. He is not walking. REVIEW OF SYSTEMS: CONSTITUTIONAL: No fever, no chills. HEENT: Normal. ENDOCRINE: No weight gain, no weight loss. CVS: No angina symptoms. No CHF symptoms. No palpitations. No atypical chest pain for CAD. No shortness of breath. No PND, no orthopnea. RESPIRATORY: Cough and congestion. No hemoptysis. GI: No nausea, no vomiting. No abdominal pain. : No hematuria. No polyuria. MUSCULOSKELETAL: Back pain. PSYCHIATRIC: Not anxious. No depression. No suicidal thoughts. No homicidal thoughts. SKIN: Intact. No rash. PHYSICAL EXAMINATION: V/S: BP 159/68, respiratory rate 16, heart rate 78, temperature 98.5, saturation 97. HEENT: Normocephalic, atraumatic. Mucosa dry. Pallor positive, no icterus. NECK: Supple. No JVD, no carotid bruit. No lymphadenopathy. LUNGS: Decreased breath sounds with basilar crackles. HEART: S1, S2 normal. No S3. No murmur, gallop or regurgitation. ABDOMEN: Soft, nontender. Bowel sounds active. No rigidity. No rebound or guarding. No CVA tenderness. EXTREMITIES: 1+ edema. No cyanosis or clubbing. MUSCULOSKELETAL: No joint swelling. NEUROLOGIC: Awake, alert. No focal deficit. LYMPHATIC: No lymph nodes palpable. SKIN: Intact. LABS: White count 6.26, hemoglobin 8.5, hematocrit 25.8, platelet count 152. Sodium 140, potassium 4.9, chloride 105, bicarb 28, BUN 28, creatinine 1.49, glucose 118. ASSESSMENT: 1. UPPER RESPIRATORY INFECTION. 2. FEVER, NO PRIMARY SOURCE OF FEVER; LAST FEVER WAS ON 10/03, CULTURES NEGATIVE SO FAR. 3. PROSTATE CANCER WITH METS. 4. ANEMIA NEEDING IRON INFUSION. 5. CHRONIC KIDNEY DISEASE. 6. OSTEOARTHRITIS OF BOTH KNEES. 7. DJD SPINE. 8. KIDNEY MASS, WILL GET MRI OF ABDOMEN TODAY. PLAN: 1. correction evaluation. 2. Fall precaution. 3. Continue antibiotics and breathing treatments. TIME SPENT: More than 35 minutes MTDD
[2017-10-06 14:14] VITALS: BP 129/72; TEMP 98.2
--- NOTE | 2017-10-06 17:02 | PCM.HOSP ---
- Initial Hospital Care [id number] 70 Minutes Bedside ([id number]): 10/02 - Subsequent Care [id number] Minutes per Day ([id number]): 10/03. /. 10/05 - Hospital Discharge [id number] More than 30 Minutes ([id number]): -
--- NOTE | 2017-10-11 08:45 | DS ---
DATE OF SERVICE: 10/06/17 FINAL DIAGNOSIS: 1. FEVER, MOST LIKELY VIRAL AND UPPER RESPIRATORY 2. UPPER RESPIRATORY INFECTION 3. ACUTE ON CHRONIC RENAL FAILURE 4. ANEMIA 5. ALZHEIMER'S DEMENTIA 6. HYPERTENSION 7. HYPERLIPIDEMIA 8. OSTEOARTHRITIS 9. T10 AND T11 SCLEROTIC LESIONS 10. METASTATIC PROSTATE CANCER 11 BPH 12. ANEMIA 13. SEVERE OSTEOARTHRITIS OF THE KNEES DISCHARGE INSTRUCTIONS: 1. Discharge the patient to the [facility] ( [facility]). 2. PT/OT please evaluate and treat. 3. Decubitus ulcer precautions. 4. Vital signs daily and p.r.n. 5. CBC, CMP within one week and q.3months after. 6. Will followup in halfway rounds in one week. MEDICATIONS AT DISCHARGE: Zytiga will be supplied by the family Atorvastatin Calcium Depakote Aricept Escitalopram Ferrous Sulfate Neurontin Cozaar Namenda Metoprolol Naproxen Ditropan XL Seroquel Firmagon Prolia Centrum Silver Lupron NEW PRESCRIPTIONS: Keflex 500 mg b.i.d. for 5 days DIET INSTRUCTIONS: Cardiac and Healthy diet. ACTIVITY: As much as tolerated. May participate in the halfway activities. Fall precautions. SMOKING: N/A DISEASE SPECIFIC EDUCATION: Fever, dehydration and upper respiratory infection discussed with patient and verbalized understanding. HOSPITAL COURSE: The patient is an 87-year-old male who came to the office with fever of 101.2 and had been coughing and congested and in view of being in the halfway, risk of infection, the patient was admitted to the hospital. Chest x-ray was normal. Temperature 99.7, started on antibiotic Rocephin and breathing treatment. CT chest done which did not show any acute findings. It did show lesion on the kidney and suggestion to get MRI of the kidney. No infiltrates. The CT scan did show metastatic prostate cancer. Hemoglobin, hematocrit slightly dropped and the patient had one more fever of 101 on 10/03. Cultures were negative. Urine negative. Hemoglobin was stable. BUN and creatinine stable. The patient was needing some physical and occupational therapy in view of inability to walk from severe and endstage bilateral knee arthritis so the patient will be discharged to [facility]. TIME SPENT: MORE THAN 65 MINUTES MTDD
== END 2017-10-06 16:12 | DRG 56 ==
LOC: MEDSURG A 16:27
PROVIDERS: ADMIT Emergency Medicine; ATTEND Emergency Medicine
DX: G30.1 Alzheimer's disease with late onset (principal); S24.153A Other incomplete lesion at T7-T10 level of thoracic spinal cord, initial encounter; N17.9 Acute kidney failure, unspecified; C79.82 Secondary malignant neoplasm of genital organs; F33.9 Major depressive disorder, recurrent, unspecified; F02.80 Dementia in other diseases classified elsewhere, unspecified severity, without behavioral disturbance, psychotic disturbance, mood disturbance, and anxiety; E78.5 Hyperlipidemia, unspecified; K21.9 Gastro-esophageal reflux disease without esophagitis; I10 Essential (primary) hypertension; R50.9 Fever, unspecified; R60.0 Localized edema; D64.9 Anemia, unspecified; G30.9 Alzheimer's disease, unspecified; N18.9 Chronic kidney disease, unspecified; N40.0 Benign prostatic hyperplasia without lower urinary tract symptoms; J06.9 Acute upper respiratory infection, unspecified; M25.562 Pain in left knee; M25.561 Pain in right knee; M54.9 Dorsalgia, unspecified; M19.90 Unspecified osteoarthritis, unspecified site
CPT/HCPCS: 36415; 80053; 81001; 82550; 84484; 85008; 85025; 87040; 87081; 87502; 93005; 93010; 94640

== ENCOUNTER 2017-12-08 11:14 | Inpatient (IN) | payer OTHER ==
[2017-12-08] MEDS ORDERED: LIDOCAINE HCL 1% SDV IM STA (14:40)
[2017-12-08] MEDS ORDERED: ROCEPHIN IM STA (14:40)
--- NOTE | 2017-12-08 14:57 | ED.PDOC ---
General ED Provider: Dr. JEANETTE HAMILTON Chief Complaint: Urinary Problem Stated Complaint: dysuria Time Seen by Physician: 11:18 Mode of Arrival: Walk-In Information Source: Patient Exam Limitations: No limitations Primary Care Provider: SOLO LUJAN Nursing and Triage Documentation Reviewed and Agree: Yes Does patient meet sepsis criteria?: No System Inflammatory Response Syndrome: Not Applicable Sepsis Protocol: For patient's 13 years and over: Temp is 96.8 and below OR 101 and greater Pulse >90 BPM Resp >20/minute Acutely Altered Mental Status Are patient's symptoms suggestive of a new infection, such as: -Pneumonia -Skin, Soft Tissue -Endocarditis -UTI -Bone, Joint Infection -Implantable Device -Acute Abdominal Infection -Wound Infection -Meningitis -Blood Stream Catheter Infection -Unknown Complaint Exam - Complaint/Exam Patient Complains of: Reports: Dysuria Onset/Duration: today Symptoms Are: Still present Timing: Intermittent Initial Severity: Moderate Current Severity: Moderate Location of Pain: Reports: Suprapubic. Denies: Penis, Scrotum, Testicle Aggravating: Reports: Voiding Alleviating: Reports: None Associated Signs and Symptoms: Reports: Dysuria. Denies: Diaphoresis, Back pain , Fever, Hematuria, Constipation, Blood in stool, Rectal pain, Appetite change, Nausea, Vomiting, Penile swelling, Penile discharge, Decreased urine output, Increased urine frequency, Increased thirst, Decreased activity, Lethargy, Scrotal pain, Scrotal swelling, Abdominal Pain Testicular Torsion Risk Factors: Reports: None Surgical Obstruction Risk Factors: Reports: None Related Surgical History: Reports: None Abdominal Findings: Present: None Differential Diagnoses: UTI Review of Systems - Review Of Systems Constitutional: Reports: No symptoms Eyes: Reports: No symptoms Ears, Nose, Mouth, Throat: Reports: No symptoms Respiratory: Reports: No symptoms Cardiac: Reports: No symptoms GI: Reports: No symptoms : Reports: Dysuria Musculoskeletal: Reports: No symptoms Skin: Reports: No symptoms Neurological: Reports: No symptoms Endocrine: Reports: No symptoms Hematologic/Lymphatic: Reports: No symptoms All Other Systems: Reviewed and Negative Past Medical History - Past Medical History Previously Healthy: No Endocrine: Reports: Dyslipidemia Cardiovascular: Reports: Hypertension Respiratory: Reports: None Hematological: Reports: None Gastrointestinal: Reports: GERD Genitourinary: Reports: None Neuro/Psych: Reports: None Musculoskeletal: Reports: None Cancer: Reports: None - Surgical History General Surgical History: Reports: None - Family History Family History: Reports: None - Social History Smoking Status: Former smoker Hx Substance Use: No Alcohol Screening: None Physical Exam - Physical Exam Appearance: Well-appearing, No pain distress, Well-nourished Eyes: LUZ, EOMI, Conjunctiva clear ENT: Ears normal, Nose normal, Oropharynx normal Respiratory: Airway patent, Breath sounds clear, Breath sounds equal, Respirations nonlabored Cardiovascular: RRR, Pulses normal, No rub, No murmur GI/: Soft, Nontender, No masses, Bowel sounds normal, No Organomegaly Musculoskeletal: Normal strength, ROM intact, No edema, No calf tenderness Skin: Warm, Dry, Normal color Neurological: Sensation intact, Motor intact, Reflexes intact, Cranial nerves intact, Alert, Oriented Psychiatric: Affect appropriate, Mood appropriate Physician Notification - Case Discussed Physician Notified: moreno Time of Notification: 14:57 (admitt telm) Admit To: Inpatient Critical Care Note - Critical Care Note Total Time (mins): 0 Course - Course Hematology/Chemistry: 12/08/17 11:50 12/08/17 11:50 Orders, Labs, Meds: Lab Review 12/08/17 12/08/17 12/08/17 11:50 11:50 13:50 WBC 7.47 RBC 3.68 L Hgb 11.0 L Hct 34.5 L MCV 93.8 MCH 29.9 MCHC 31.9 RDW Coeff of Alok 13.3 Plt Count 190 Immature Gran % (Auto) 0.9 Neut % (Auto) 70.1 Lymph % (Auto) 12.6 [place] % (Auto) 11.9 H Eos % (Auto) 4.0 Baso % (Auto) 0.5 Immature Gran # (Auto) 0.1 Neut # (Auto) 5.2 Lymph # (Auto) 0.9 [place] # (Auto) 0.9 Eos # (Auto) 0.3 Baso # (Auto) 0.0 Sodium 136.5 L Potassium 4.15 Chloride 100.4 Carbon Dioxide 31.3 H Anion Gap 8.95 BUN 46.5 H Creatinine 1.57 H Estimated GFR (MDRD) 51.00 BUN/Creatinine Ratio 29.61 Glucose 192.8 H Calcium 8.87 Total Bilirubin 0.42 AST 25.4 ALT 14.7 Alkaline Phosphatase 72.6 Total Protein 6.41 Albumin 3.70 Globulin 2.71 Albumin/Globulin Ratio 1.36 Urine Color Yellow Urine Clarity Turbid Urine pH 8.5 Ur Specific [place] 1.025 Urine Protein 3+ Urine Glucose (UA) Negative Urine Ketones Negative Urine Blood 3+ Urine Nitrite Negative Urine Bilirubin Negative Urine Urobilinogen 0.2 Ur Leukocyte Esterase 3+ Urine Microscopic RBC 5-10 Urine Microscopic WBC Tntc Ur Squamous Epith Cells Not present Urine Bacteria 4+ Urine Mucus 2+ Orders Category Date Time Status CBC W/ AUTO DIFF Stat LAB 12/08/17 11:50 Completed COMPREHENSIVE METABOLIC PANEL Stat LAB 12/08/17 11:50 Completed URINALYSIS C & S IF INDICATED Stat LAB 12/08/17 13:50 Completed URINE CULTURE Stat LAB 12/08/17 13:50 Received Ceftriaxone Sodium [Rocephin] MEDS 12/08/17 14:40 Stat 1 gm IM ONCE STA Lidocaine HCl/Pf [Lidocaine HCl 1% Sdv] MEDS 12/08/17 14:40 Stat 2.1 ml IM ONCE STA Medications Discontinued Medications Generic Name Dose Route Start Last Admin Trade Name Dale PRN Reason Stop Dose Admin Ceftriaxone Sodium 1 gm 12/08/17 14:40 Rocephin IM 12/08/17 14:41 ONCE STA Lidocaine HCl 2.1 ml 12/08/17 14:40 Lidocaine Hcl 1% Sdv IM 12/08/17 14:41 ONCE STA Vital Signs: Temp Pulse Resp BP Pulse Ox 12/08/17 11:15 98.7 F 62 16 150/72 H 100 Departure - Departure Time of Disposition: 14:57 Disposition: ADMITTED INPATIENT Discharge Problem: Urinary symptoms, Urinary tract infectious disease Instructions: Urinary Tract Infection in Men (ED) Condition: Good Pt referred to PMD for follow-up: Yes IPMP verified?: No Allergies/Adverse Reactions: Allergies No Known Allergies Allergy (Verified 12/08/17 11:27) Home Medications: Ambulatory Orders Folic Acid/Multivit,Iron,Diaper Folder [Centrum Chewable Tablet] 1 tab PO DAILY Degarelix Acetate [Firmagon] 80 mg SQ ONCE 05/10/17 Denosumab [Prolia] 60 mg SQ ONCE 05/10/17 Leuprolide Acetate [Lupron Depot] 3.75 mg IM ONCE 05/10/17 Abiraterone Acetate [Zytiga] 1,000 mg PO DAILY 05/23/17 Prednisone 1 tab PO BIDWM 10/03/17 Meloxicam 15 mg PO DAILY 12/08/17 Disposition Discussed With: Patient, Family
[2017-12-08] MEDS ORDERED: DEGARELIX ACETATE 80 MG SQ SCH (15:00)
[2017-12-08] MEDS ORDERED: LEUPROLIDE ACETATE 3.75 MG IM SCH (15:00)
[2017-12-08] MEDS ORDERED: NON-FORMULARY MEDICATION (Ferrous Sulfate [Ferrous Sulfate] 325 MG) PO SCH (15:00)
[2017-12-08 16:23] VITALS: BMI 24.3
--- NOTE | 2017-12-08 16:23 | ED.PDOC ---
Procedures - IV/Art Line Insertion Location: ACR Type of Line: Peripheral IV Invasive Line/IV Catheter Gauge: 22 Number of Attempts: 1 Blood Return Positive: Yes Invasive Line/IV Flushes Without Difficulty: Yes Conscious Sedation - Pre-op Assessment Weight: 183 lb Surgical History: none - Medical History Past Medical History: Hypertension, Cancer, Kidney Disease, Arthritis Other History: hx prostate cancer; swollen left kidney; incontinent - Physical Exam Heart Rate/Rhythm: Regular Rhythm
[2017-12-08] MEDS: SODIUM CHLORIDE 1,000 ML IV SCH (16:29)
[2017-12-08] MEDS: ROCEPHIN 1 GM in SODIUM CHLORIDE 50 ML IV SCH (16:30)
[2017-12-08] MEDS: PREDNISONE PO SCH (16:38)
[2017-12-08] MEDS: LOPRESSOR PO SCH (16:38)
[2017-12-08] MEDS: AZACTAM 1 GM in SODIUM CHLORIDE 50 ML IV SCH ×2 (16:38→21:07)
[2017-12-08] MEDS ORDERED: AZACTAM ONE (20:21)
[2017-12-08] MEDS ORDERED: DIVALPROEX SODIUM 125 MG PO SCH (21:00)
[2017-12-08] MEDS ORDERED: ARICEPT PO SCH (21:00)
[2017-12-08] MEDS: LIPITOR PO SCH (21:08)
[2017-12-08] MEDS: DEPAKOTE SPRINKLES PO SCH (21:08)
[2017-12-08] MEDS: NEURONTIN PO SCH (21:08)
[2017-12-08] MEDS: FERROUS SULFATE PO SCH (21:08)
[2017-12-08] MEDS: NAMENDA PO SCH (21:09)
[2017-12-09] MEDS: SODIUM CHLORIDE 1,000 ML IV SCH (04:49)
[2017-12-09] MEDS: ROCEPHIN 1 GM in SODIUM CHLORIDE 50 ML IV SCH (08:54)
[2017-12-09] MEDS: ABIRATERONE ACETATE 1000 MG PO SCH (08:55)
[2017-12-09] MEDS: DEPAKOTE SPRINKLES PO SCH ×2 (08:56→21:06)
[2017-12-09] MEDS: MOBIC PO SCH (08:56)
[2017-12-09] MEDS: NAMENDA PO SCH ×2 (08:57→21:04)
[2017-12-09] MEDS: PREDNISONE PO SCH ×2 (08:57→16:51)
[2017-12-09] MEDS: FERROUS SULFATE PO SCH ×3 (08:57→21:04)
[2017-12-09] MEDS: MULTIVITAMIN TABLET PO SCH (08:57)
[2017-12-09] MEDS: LOPRESSOR PO SCH ×2 (08:57→16:51)
[2017-12-09] MEDS: COZAAR PO SCH (08:58)
[2017-12-09] MEDS: LEXAPRO PO SCH (08:58)
[2017-12-09] MEDS: DITROPAN XL PO SCH (08:58)
[2017-12-09] MEDS: DONEPEZIL HCL 23 MG PO SCH (08:59)
[2017-12-09] MEDS ORDERED: FOLIC ACID PO SCH (09:00)
[2017-12-09] MEDS ORDERED: [UNRECOGNIZED DRUG - OTHER] PO SCH (09:00)
[2017-12-09] MEDS ORDERED: MULTIVIT IRON MINER PO SCH (09:00)
[2017-12-09] MEDS ORDERED: NON-FORMULARY MEDICATION (Escitalopram Oxalate [Escitalopram Oxalate] 20 MG) PO SCH (09:00)
[2017-12-09] MEDS ORDERED: OXYBUTYNIN CHLORIDE 10 MG PO SCH (09:00)
[2017-12-09] MEDS ORDERED: NON-FORMULARY MEDICATION (Meloxicam [Meloxicam] 15 MG) PO SCH (09:00)
[2017-12-09] MEDS: AZACTAM 1 GM in SODIUM CHLORIDE 50 ML IV SCH ×2 (09:57→21:04)
[2017-12-09] MEDS: LIPITOR PO SCH (21:04)
[2017-12-09] MEDS: NEURONTIN PO SCH (21:04)
[2017-12-10] MEDS: SODIUM CHLORIDE 1,000 ML IV SCH ×2 (01:57→13:35)
[2017-12-10] MEDS: PREDNISONE PO SCH ×2 (08:59→18:02)
[2017-12-10] MEDS: MULTIVITAMIN TABLET PO SCH (09:01)
[2017-12-10] MEDS: COZAAR PO SCH (09:02)
[2017-12-10] MEDS: NAMENDA PO SCH ×2 (09:02→14:07)
[2017-12-10] MEDS: FERROUS SULFATE PO SCH ×3 (09:02→20:18)
[2017-12-10] MEDS: MOBIC PO SCH (09:02)
[2017-12-10] MEDS: LOPRESSOR PO SCH ×2 (09:04→18:02)
[2017-12-10] MEDS: ABIRATERONE ACETATE 1000 MG PO SCH ×2 (09:22→11:28)
[2017-12-10] MEDS: LEXAPRO PO SCH (09:22)
[2017-12-10] MEDS: DEPAKOTE SPRINKLES PO SCH ×2 (09:22→20:18)
[2017-12-10] MEDS: DITROPAN XL PO SCH (09:22)
[2017-12-10] MEDS: ROCEPHIN 1 GM in SODIUM CHLORIDE 50 ML IV SCH (09:23)
[2017-12-10] MEDS: DONEPEZIL HCL 23 MG PO SCH (10:08)
[2017-12-10] MEDS: AZACTAM 1 GM in SODIUM CHLORIDE 50 ML IV SCH (10:13)
[2017-12-10] MEDS ORDERED: DONEPEZIL HCL 23 MG PO SCH (18:00)
[2017-12-10] MEDS: NEURONTIN PO SCH (20:18)
[2017-12-10] MEDS: LIPITOR PO SCH (20:18)
[2017-12-11] MEDS: PREDNISONE PO SCH (08:33)
[2017-12-11] MEDS: LEXAPRO PO SCH (08:33)
[2017-12-11] MEDS: LOPRESSOR PO SCH (08:33)
[2017-12-11] MEDS: DITROPAN XL PO SCH (08:33)
[2017-12-11] MEDS: MULTIVITAMIN TABLET PO SCH (08:33)
[2017-12-11] MEDS: COZAAR PO SCH (08:33)
[2017-12-11] MEDS: FERROUS SULFATE PO SCH ×2 (08:33→15:30)
[2017-12-11] MEDS: MOBIC PO SCH (08:34)
[2017-12-11] MEDS: DEPAKOTE SPRINKLES PO SCH (08:55)
[2017-12-11] MEDS ORDERED: ROCEPHIN IM SCH (09:00)
[2017-12-11] MEDS ORDERED: LIDOCAINE HCL 1% SDV IM SCH (09:00)
--- NOTE | 2017-12-11 09:38 | PN ---
DATE OF SERVICE: 12/11/17 SUBJECTIVE: The patient's condition seems to have improved. His kidney functions are better. Rate is stable. Potassium 4.4. REVIEW OF SYSTEMS: CONSTITUTIONAL: No night sweats. No fatigue, malaise, lethargy. No fever or chills. HEENT: Eyes: No visual changes. No eye pain. No eye discharge. ENT: No runny nose. No epistaxis. No sinus pain. No sore throat. No odynophagia. No congestion. RESPIRATORY: No cough, no congestion. No hemoptysis. No shortness of breath. CARDIOVASCULAR: No angina symptoms. No CHF symptoms. No atypical chest pain for CAD. No palpitations. No orthopnea. GASTROINTESTINAL: No abdominal pain. No nausea or vomiting. No diarrhea or constipation. No hematemesis. No hematochezia. GENITOURINARY: No urgency. No frequency. No dysuria. No hematuria. No obstructive symptoms. No discharge. No pain. No significant abnormal bleeding. MUSCULOSKELETAL: No musculoskeletal pain; no joint swelling. NEUROLOGICAL: Confused but more alert. Trying to answer the questions. No headache. No neck pain. No syncope. No seizures. No dizziness. PSYCHIATRIC: Not anxious. No depression. No suicidal thoughts. No homicidal thoughts. SKIN: No rash. No lesions. No wounds. ENDOCRINE: No unexplained weight loss. No weight gain. HEMATOLOGIC/LYMPHATIC: No anemia. No purpura. No petechiae. No prolonged or excessive bleeding. No palpable lymph nodes. PHYSICAL EXAMINATION: VITAL SIGNS: Temperature 98.4, pulse 72, respiratory rate 16, BP 128/58, pulse ox 97%. HEENT: Head normocephalic, atraumatic. Eyes: Extraocular muscles are intact. Pupils are equal, round and reactive to light and accommodation. Ears: No lesions. Nose appeared normal. Throat: No exudate or erythema. NECK: Supple. No JVD, no carotid bruit. No lymphadenopathy or thyromegaly. LUNGS: Decreased breath sounds but clear to auscultation. Percussion note normal. Chest symmetrical. HEART: S1, S2, no S3. No murmurs. No cyanosis or clubbing. No ascites. Pulses: Dorsalis pedis and posterior tibial pulses +1 to +2 both sides. ABDOMEN: Soft. Nontender. Bowel sounds active. No CVA tenderness. No mass felt. EXTREMITIES: No edema. Full range of motion of all extremities, equal. NEUROLOGIC: No focal deficit. Cranial nerves II through XII are grossly intact. No headache, no double vision or headache. SKIN: Not dry. Intact. Turgor - normal. LYMPHATIC: No palpable lymph nodes/no lymphedema. MUSCULOSKELETAL: Normal joints with no swelling. Muscle tone is normal. ASSESSMENT: 1. UTI seem to be clinically resolved. The patient has proteus, sensitive to practically all antibiotics. 2. 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 PLAN: 1. Will discharge the patient home. 2. Keflex 500 mg t.i.d. for 7 days. 3. The patient to follow with Dr. Wilson/Dr. Howe in 2 to 3 days. 4. Continue the same medications and orders as before. CONDITION: Stable. TIME SPENT: More than 30 minutes. Plan and coordination of the patient's care discussed in the presence of nurse. KETTY
--- NOTE | 2017-12-11 09:40 | PN ---
CODING FOR BILLING The patient was hospitalized by myself as hospitalist. 12/08/17 ADMISSION DAY LEVEL 5 12/09/17 INTERMEDIATE 12/10/17 INTERMEDIATE 12/11/17 DISCHARGE MTDD
[2017-12-11] MEDS: NAMENDA PO SCH ×2 (10:07→15:30)
[2017-12-11] MEDS: ABIRATERONE ACETATE 1000 MG PO SCH (10:07)
--- NOTE | 2017-12-11 10:24 | CM.DICTOOL ---
ADMISSION: 12/08/17 14:56 DISCHARGE: DECEMBER 11, 2017 DATE OF SERVICE: 12/11/17 FINAL DIAGNOSIS URINARY TRACT INFECTION, PROTEUS MIRABILIS ANEMIA CHRONIC RENAL FAILURE ALZHEIMER'S DEMENTIA HYPERTENSION HYPERLIPIDEMIA METASTATIC PROSTATE CANCER SCLEROTIC LESION T10 AND T11 BPH OSTEOARTHRITIS LAST VITALS Temp Pulse Resp BP Pulse Ox 98.4 F 72 16 128/58 L 97 12/11/17 05:49 12/11/17 05:49 12/11/17 05:49 12/11/17 05:49 12/11/17 05:49 TAKE THESE MEDICATIONS AT HOME Atorvastatin Calcium (Lipitor) 20 mg PO BEDTIME [facility] Last Admin: 12/10/17 20:18 Dose: 20 mg Quetiapine Fumarate (Seroquel) 25 mg PO BEDTiME [facility] Last Admin: Divalproex Sodium (Depakote Sprinkles) 125 mg PO BID [facility] Last Admin: 12/11/17 08:55 Dose: 125 mg Escitalopram Oxalate (Lexapro) 20 mg PO DAILY [facility] Last Admin: 12/11/17 08:33 Dose: 20 mg Ferrous Sulfate (Ferrous Sulfate) 324 mg PO TID [facility] Last Admin: 12/11/17 08:33 Dose: 324 mg Gabapentin (Neurontin) 300 mg PO BEDTIME [facility] Last Admin: 12/10/17 20:18 Dose: 300 mg Losartan Potassium (Cozaar) 100 mg PO DAILY [facility] Last Admin: 12/11/17 08:33 Dose: 100 mg Meloxicam (Mobic) 15 mg PO DAILYWM [facility] Last Admin: 12/11/17 08:34 Dose: 15 mg Memantine (Namenda) 10 mg PO 0900,1200 [facility] Last Admin: 12/10/17 14:07 Dose: 10 mg Metoprolol Tartrate (Lopressor) 25 mg PO BIDWM [facility] Last Admin: 12/11/17 08:33 Dose: 25 mg Multivitamins (Multivitamin Tablet) 1 tab PO DAILY [facility] Last Admin: 12/11/17 08:33 Dose: 1 tab Non-Formulary Medication (Leuprolide Acetate [Lupron Depot]) 3.75 mg IM STAN ( Q 6 MONTHS) Last Admin: Denosumab (Prolia) 60 mg SQ (Q 6 MONTHS) Last Admin: Non-Formulary Medication (Donepezil Hcl [Aricept]) 23 mg PO 1800 [facility] Last Admin: 12/10/17 18:02 Dose: 23 mg Non-Formulary Medication (Abiraterone Acetate [Zytiga]) 1,000 mg PO 1100 [facility] Last Admin: 12/10/17 11:28 Dose: 1,000 mg Oxybutynin Chloride (Ditropan Xl) 10 mg PO DAILY [facility] Last Admin: 12/11/17 08:33 Dose: 10 mg Prednisone (Prednisone) 5 mg PO BIDWM [facility] Last Admin: 12/11/17 08:33 Dose: 5 mg Keflex 500 mg TID for 7 days Last Admin: ALLERGIES No Known Allergies Allergy (Verified 12/08/17 11:27) DISCONTINUED MEDICATIONS None NEW PRESCRIPTIONS: Keflex 500 mg TID for 7 days SMOKING: Not Applicable DISEASE SPECIFIC EDUCATION: Medications Urinary Tract Infection Fluid Intake LAB REVIEW: 12/11/17 05:08 12/11/17 05:08 12/11/17 05:08: Sodium 136.4 L, Potassium 4.48, Chloride 110.0 H, Carbon Dioxide 25.2, Anion Gap 5.68, BUN 45.9 H, Creatinine 1.20 H, Estimated GFR (MDRD ) 70.00, BUN/Creatinine Ratio 38.25, Glucose 119.7 H, Calcium 7.63 L, Total Bilirubin 0.15 L, AST 16.7 L, ALT 13.1, Alkaline Phosphatase 86.7, Total Protein 5.18 L, Albumin 2.86 L, Globulin 2.32, Albumin/Globulin Ratio 1.23 12/11/17 05:08: WBC 9.55, RBC 3.03 L, Hgb 9.2 L, Hct 28.2 L, MCV 93.1, MCH 30.4 , MCHC 32.6, RDW Coeff of Alok 13.2, Plt Count 156, Immature Gran % (Auto) 1.7, Neut % (Auto) 70.4, Lymph % (Auto) 11.7, [place] % (Auto) 11.0 H, Eos % (Auto) 4.6 , Baso % (Auto) 0.6, Immature Gran # (Auto) 0.2, Neut # (Auto) 6.7, Lymph # ( Auto) 1.1, [place] # (Auto) 1.1, Eos # (Auto) 0.4, Baso # (Auto) 0.1 PLAN: Discharge home with daughter Diet: Regular and as per daughter, encourage liquids Activity: Encourage turning every 2 hours Up to chair as tolerated Incontinent care frequently Decubitus precautions An appointment is scheduled with Dr. Wilson on December 14 at 9:30 am for hospital follow-up Continue medications as listed on nursing discharge information sheet Mr. Vasquez is alert to person, place. He is able to feed himself at meal time, but requires with meal tray preparation, repositioning and personal care. He requires maximum assistance of 2 staff members for transfers. The family advises they use a shantelle lift at home due to lower extemity weakness. Meal intakes are good at 75-100%. Mr. Vasquez is incontinent of urine and bowel. He wears depends undergarments due to urinary incontinence. Skin is smooth, dry and free of decubitus ulcers. Danny Rubalcava MD Lucy Roach APRN
--- NOTE | 2017-12-11 11:17 | PN ---
DATE OF SERVICE: 12/08/17 SUBJECTIVE: The patient was seen and examined with the nurse practitioner. The patient was admitted for urinary problems with dysuria and urinary incontinence. The patient has abnormal UA, evidence of UTI. The patient would be treated with Rocephin and Azactam. The patient is confused. REVIEW OF SYSTEMS: CONSTITUTIONAL: No night sweats. No fatigue, malaise, lethargy. No fever or chills. HEENT: Eyes: No visual changes. No eye pain. No eye discharge. ENT: No runny nose. No epistaxis. No sinus pain. No sore throat. No odynophagia. No congestion. RESPIRATORY: No cough, no congestion. No hemoptysis. No shortness of breath. CARDIOVASCULAR: No angina symptoms. No CHF symptoms. No atypical chest pain for CAD. No palpitations. No orthopnea. GASTROINTESTINAL: No abdominal pain. No nausea or vomiting. No diarrhea or constipation. No hematemesis. No hematochezia. GENITOURINARY: No urgency. No frequency. No dysuria. No hematuria. No obstructive symptoms. No discharge. No pain. No significant abnormal bleeding. MUSCULOSKELETAL: No musculoskeletal pain; no joint swelling. NEUROLOGICAL: The patient is confused. No headache. No neck pain. No syncope. No seizures. No dizziness. PSYCHIATRIC: Not anxious. No depression. No suicidal thoughts. No homicidal thoughts. SKIN: No rash. No lesions. No wounds. ENDOCRINE: No unexplained weight loss. No weight gain. HEMATOLOGIC/LYMPHATIC: No anemia. No purpura. No petechiae. No prolonged or excessive bleeding. No palpable lymph nodes. PHYSICAL EXAMINATION: HEENT: Head normocephalic, atraumatic. Eyes: Extraocular muscles are intact. Pupils are equal, round and reactive to light and accommodation. Ears: No lesions. Nose appeared normal. Throat: No exudate or erythema. NECK: Supple. No JVD, no carotid bruit. No lymphadenopathy or thyromegaly. LUNGS: Clear to auscultation. Percussion note normal. Chest symmetrical. HEART: S1, S2, no S3. No murmurs. No cyanosis or clubbing. No ascites. Pulses: Dorsalis pedis and posterior tibial pulses +2 bilaterally. ABDOMEN: Soft. Nontender. Bowel sounds active. No CVA tenderness. No mass felt. EXTREMITIES: No pedal edema noted. Full range of motion of all extremities, equal. NEUROLOGIC: The patient is confused. No focal deficit. Cranial nerves II through XII are grossly intact. No headache, no double vision or headache. SKIN: Not dry. Intact. Turgor - normal. LYMPHATIC: No palpable lymph nodes/no lymphedema. MUSCULOSKELETAL: Normal joints with no swelling. Muscle tone is normal. ASSESSMENT: 1. UTI 2. CA OF THE PROSTATE WITH METASTASIS TO THE SPINE 3. DEMENTIA 4. HYPERTENSION CONDITION: Stable TIME SPENT: More than 30 minutes. Plan and coordination of the patient's care discussed in the presence of nurse. KETTY
--- NOTE | 2017-12-11 11:34 | PN ---
DATE OF SERVICE: 12/09/17 SUBJECTIVE: 87-year-old Black Male hospitalized with UTI. The patient is more alert, responding better to the questions that have been asked. The patient is still confused, disoriented to person, place and time. His appetite has improved some. REVIEW OF SYSTEMS: CONSTITUTIONAL: No night sweats. No fatigue, malaise, lethargy. No fever or chills. HEENT: Eyes: No visual changes. No eye pain. No eye discharge. ENT: No runny nose. No epistaxis. No sinus pain. No sore throat. No odynophagia. No congestion. RESPIRATORY: No cough, no congestion. No hemoptysis. No shortness of breath. CARDIOVASCULAR: No angina symptoms. No CHF symptoms. No atypical chest pain for CAD. No palpitations. No orthopnea. GASTROINTESTINAL: No abdominal pain. No nausea or vomiting. No diarrhea or constipation. No hematemesis. No hematochezia. GENITOURINARY: No urgency. No frequency. No dysuria. No hematuria. No obstructive symptoms. No discharge. No pain. No significant abnormal bleeding. MUSCULOSKELETAL: No musculoskeletal pain; no joint swelling. NEUROLOGICAL: No headache. No neck pain. No syncope. No seizures. No dizziness. PSYCHIATRIC: Not anxious. No depression. No suicidal thoughts. No homicidal thoughts. SKIN: No rash. No lesions. No wounds. ENDOCRINE: No unexplained weight loss. No weight gain. HEMATOLOGIC/LYMPHATIC: No anemia. No purpura. No petechiae. No prolonged or excessive bleeding. No palpable lymph nodes. PHYSICAL EXAMINATION: VITAL SIGNS: Temperature 98.7, pulse 72, respiratory rate 18, BP 160/88, pulse ox 97%. HEENT: Head normocephalic, atraumatic. Eyes: Extraocular muscles are intact. Pupils are equal, round and reactive to light and accommodation. Ears: No lesions. Nose appeared normal. Throat: No exudate or erythema. NECK: Supple. No JVD, no carotid bruit. No lymphadenopathy or thyromegaly. LUNGS: Decreased breath sounds but clear to auscultation. Percussion note normal. Chest symmetrical. HEART: S1, S2, no S3. No murmurs. No cyanosis or clubbing. No ascites. Pulses: Dorsalis pedis and posterior tibial pulses +1 to +2 both sides. ABDOMEN: Soft. Nontender. Bowel sounds active. No CVA tenderness. No mass felt. EXTREMITIES: No edema. Full range of motion of all extremities, equal. NEUROLOGIC: No focal deficit. Cranial nerves II through XII are grossly intact. No headache, no double vision or headache. SKIN: Not dry. Intact. Turgor - normal. LYMPHATIC: No palpable lymph nodes/no lymphedema. MUSCULOSKELETAL: Normal joints with no swelling. Muscle tone is normal. ASSESSMENT: 1. UTI 2. RENAL AZOTEMIA 3. CA OF THE PROSTATE WITH METASTASIS TO THE SPINE 4. DEMENTIA PLAN: 1. Continue IV antibiotics 2. Decrease IV fluid rate to 50 cc 3. Will continue to monitor CBC, CMP today. The lab was unable to draw CMP and CBC but they will try later on. TIME SPENT: More than 30 minutes. Plan and coordination of the patient's care discussed in the presence of nurse. KETTY
[2017-12-11 14:22] VITALS: BP 127/67; TEMP 98.9
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
--- NOTE | 2017-12-12 13:29 | DS ---
DATE OF SERVICE: 12/11/17 FINAL DIAGNOSIS: 1. URINARY TRACT INFECTION, PROTEUS MIRABILIS 2. ANEMIA 3. CHRONIC RENAL FAILURE 4. ALZHEIMER'S DEMENTIA 5. HYPERTENSION 6. HYPERLIPIDEMIA 7. METASTATIC PROSTATE CANCER 8. SCLEROTIC LESION T10 AND T11 9. BPH 10. OSTEOARTHRITIS DISCHARGE INSTRUCTIONS: 1. Followup appointment is scheduled with Dr. Wilson on 12/14/17 at 9:30 a.m. for hospital followup. 2. Incontinent care frequently. 3. Decubitus precautions. MEDICATIONS AT DISCHARGE: Atorvastatin (Lipitor) 20 mg p.o. bedtime STAN Seroquel 25 mg p.o. bedtime STAN Depakote Sprinkles 125 mg p.o. b.i.d. STAN Lexapro 20 mg p.o. daily STAN Ferrous Sulfate 324 mg p.o. t.i.d. STAN Neurontin 300 mg p.o. bedtime STAN Cozaar 100 mg p.o. daily STAN Mobic 15 mg p.o. daily with meal STAN Namenda 10 mg p.o. 0900, 1200 STAN Lopressor 25 mg p.o. b.i.d with meal STAN Multivitamin one tab p.o. daily STAN Lupron Depot 3.75 mg IM STAN (q.6mths) Prolia 60 mg SQ (q.6mths) Donepezil (Aricept) 23 mg p.o. 1800 STAN Abiraterone Acetate (Zytigal) 1,000 mg p.o. 1100 STAN Oxybutynin (Ditropan XL) 10 mg p.o. daily STAN Prednisone 5 mg p.o. b.i.d. with meal STAN Keflex 500 mg t.i.d. for 7 days NEW PRESCRIPTIONS: Keflex 500 mg t.i.d. for 7 days DIET INSTRUCTIONS: Regular and as per daughter, encourage liquids. ACTIVITY: Encourage turning every 2 hours. Up to chair as tolerated. SMOKING: N/A DISEASE SPECIFIC EDUCATION: Medications Urinary tract infection Fluid intake HOSPITAL COURSE: This is an 87-year-old -[place] male who was admitted through the emergency room. He has a history of prostate cancer with bone metastasis. He was brought in complaining of dysuria. His UA was abnormal. He was allergic to all p.o. medications so he was admitted and placed on Rocephin 1 gm IV daily. All of his home medications were continued. He is on an experimental prostate cancer drug which the patient's family brought in. He had recently been hospitalized within the past month and one-half with Dr. Wilson I do believe and the family had refused hospice care despite the poor prognosis. He is incontinent of bowel and bladder. Dr. Wilson recommended he go to the [facility] at that time however the family wanted to keep him at home which were the patient's wishes. He had low grade fever on admission. For the past 36 hours he has had no fever. He has been eating 75% of his meals. He has been drinking well. Vital signs have been within normal limits. He was placed on routine telemetry orders. Again Rocephin 1 gm IV daily which urine culture showed that it was sensitive. His kidney function was slightly elevated on admission. He has a history of chronic kidney disease. BUN was 50, creatinine 1.9. He was placed on slow IV fluids due to avoid fluid volume overload. He was placed on NS at 75 cc/hr. Today, on day of discharge, hemoglobin is 9, likely due as a combination of hemodilution and the fact that he is on chemotherapy treatment drugs. His condition has improved. He is no longer experiencing dysuria. He will be discharged home, instructed to followup with the [facility] later on this week. He is to continue following up with Urology. All of his home medications have remained the same. Family again refuses Hospice. Discharged in stable condition. TIME SPENT: More than 60 minutes. MTDD
--- NOTE | 2017-12-14 10:27 | PN ---
CODING FOR BILLING 12/08/17 LEVEL 5 12/09/17 INTERMEDIATE 12/10/17 INTERMEDIATE 12/11/17 DISCHARGE MTDD
== END 2017-12-11 15:45 | disposition home health service (06) | DRG 392 ==
LOC: ED 11:14 → MEDSURG B 14:56
PROVIDERS: ADMIT Internal Medicine; ATTEND Internal Medicine
DX: R10.30 Lower abdominal pain, unspecified (principal); N39.0 Urinary tract infection, site not specified; C79.51 Secondary malignant neoplasm of bone; C79.82 Secondary malignant neoplasm of genital organs; C61 Malignant neoplasm of prostate; D64.9 Anemia, unspecified; G30.9 Alzheimer's disease, unspecified; I10 Essential (primary) hypertension; E78.5 Hyperlipidemia, unspecified; F02.80 Dementia in other diseases classified elsewhere, unspecified severity, without behavioral disturbance, psychotic disturbance, mood disturbance, and anxiety; M19.90 Unspecified osteoarthritis, unspecified site; N18.9 Chronic kidney disease, unspecified; N40.1 Benign prostatic hyperplasia with lower urinary tract symptoms; R79.89 Other specified abnormal findings of blood chemistry; B96.4 Proteus (mirabilis) (morganii) as the cause of diseases classified elsewhere
CPT/HCPCS: 36415; 80053; 81001; 82962; 85025; 87086; 87186; 93005; 93010; 96372; 99284

== ENCOUNTER 2018-01-02 17:51 | Outpatient (CLI) | END 2018-01-02 17:52 | disposition home or self-care (01) | LOC: LAB 17:51 | PROVIDERS: ATTEND Family Medicine | DX: R39.15 Urgency of urination (principal) | CPT/HCPCS: 81001; 87086 ==

== ENCOUNTER 2018-03-20 12:54 | Outpatient (CLI) | payer OTHER | END 2018-03-20 13:14 | disposition short-term general hospital (02) | LOC: AMBL 12:54 | PROVIDERS: ATTEND Emergency Medicine | DX: R03.1 Nonspecific low blood-pressure reading (principal); Z79.899 Other long term (current) drug therapy ==

== ENCOUNTER 2018-04-08 17:20 | Outpatient (CLI) | payer OTHER | END 2018-04-08 17:21 | disposition home or self-care (01) | LOC: LAB 17:20 | PROVIDERS: ATTEND Family Medicine | DX: N39.0 Urinary tract infection, site not specified (principal) ==

== ENCOUNTER 2018-04-14 21:19 | Outpatient (CLI) | END 2018-04-14 21:20 | disposition home or self-care (01) | LOC: LAB 21:19 | PROVIDERS: ATTEND Family Medicine | DX: R41.82 Altered mental status, unspecified (principal); N39.0 Urinary tract infection, site not specified | CPT/HCPCS: 81001; 87086; 87186 ==

== ENCOUNTER 2018-05-04 12:50 | Outpatient (CLI) | payer OTHER | END 2018-05-04 13:15 | disposition short-term general hospital (02) | LOC: AMBL 12:50 | PROVIDERS: ATTEND Internal Medicine | DX: I95.9 Hypotension, unspecified (principal); R53.83 Other fatigue; R53.1 Weakness; R73.9 Hyperglycemia, unspecified; I44.0 Atrioventricular block, first degree ==

== ENCOUNTER 2018-05-21 11:21 | Outpatient (CLI) | payer OTHER | END 2018-05-21 11:39 | disposition short-term general hospital (02) | LOC: AMBL 11:21 | PROVIDERS: ATTEND Internal Medicine | DX: R53.1 Weakness (principal); R06.02 Shortness of breath; R73.9 Hyperglycemia, unspecified; Z87.440 Personal history of urinary (tract) infections ==

== ENCOUNTER 2018-05-31 12:58 | Outpatient (CLI) | END 2018-05-31 13:15 | disposition short-term general hospital (02) | LOC: AMBL 12:58 | PROVIDERS: ATTEND Emergency Medicine | DX: R53.1 Weakness (principal); R53.83 Other fatigue; Z87.440 Personal history of urinary (tract) infections ==

== ENCOUNTER 2018-06-11 20:28 | Outpatient (CLI) | payer OTHER | END 2018-06-11 20:29 | disposition home or self-care (01) | LOC: NONPT 20:28 | PROVIDERS: ATTEND Nurse Practitioner Family | DX: R19.7 Diarrhea, unspecified (principal) | CPT/HCPCS: 87015; 87045; 87177; 87493; 87899 ==

== ENCOUNTER 2018-07-15 14:45 | Outpatient (CLI) | END 2018-07-15 15:02 | disposition short-term general hospital (02) | LOC: AMBL 14:45 | PROVIDERS: ATTEND Emergency Medicine | DX: R53.1 Weakness (principal); R53.83 Other fatigue; I10 Essential (primary) hypertension; R33.9 Retention of urine, unspecified; R00.0 Tachycardia, unspecified; Z87.440 Personal history of urinary (tract) infections; Z86.73 Personal history of transient ischemic attack (TIA), and cerebral infarction without residual deficits ==

== ENCOUNTER 2018-07-20 10:20 | Outpatient (CLI) | END 2018-07-20 10:21 | disposition home or self-care (01) | LOC: LAB 10:20 | PROVIDERS: ATTEND Internal Medicine | DX: C61 Malignant neoplasm of prostate (principal) | CPT/HCPCS: 36415; 84153 ==

== ENCOUNTER 2018-07-30 09:06 | Outpatient (CLI) | payer OTHER | END 2018-07-30 09:25 | disposition short-term general hospital (02) | LOC: AMBL 09:06 | PROVIDERS: ATTEND Internal Medicine | DX: R41.0 Disorientation, unspecified (principal); R52 Pain, unspecified; N39.0 Urinary tract infection, site not specified; I44.0 Atrioventricular block, first degree ==

== ENCOUNTER 2018-08-02 18:34 | Outpatient (CLI) | payer OTHER | END 2018-08-02 18:53 | disposition home or self-care (01) | LOC: AMBL 18:34 | PROVIDERS: ATTEND Emergency Medicine | DX: Z74.01 Bed confinement status (principal); G93.40 Encephalopathy, unspecified; R47.9 Unspecified speech disturbances ==

== ENCOUNTER 2018-10-25 20:14 | Outpatient (CLI) | payer OTHER | END 2018-10-25 20:15 | disposition home or self-care (01) | LOC: NONPT 20:14 | PROVIDERS: ATTEND Nurse Practitioner Family | DX: R32 Unspecified urinary incontinence (principal) | CPT/HCPCS: 81001; 87086 ==